=== PATIENT | female | born 1960 | race Caucasian/White ===

== ENCOUNTER 2018-08-02 21:22 | Emergency (ER) | payer MEDICARE, MEDICAID ==
[~2018-08-02] VITALS: Ht 160 cm; Wt 81.0 kg
[2018-08-02 21:35] VITALS: BP 119/49
[2018-08-02 23:18] LABS: BASOPHILS % (AUTO) 0.4 % (0-1); EOSINOPHILS % (AUTO) 0.1 % (0-6); HEMATOCRIT 39.1 % (35.0-45.0); HEMOGLOBIN 13.3 g/dl (12.0-16.0); LYMPHOCYTES # (AUTO) 1.4 X10'3 (1.1-4.8); LYMPHOCYTES % (AUTO) 12.6 % (21-51); MEAN CORPUSCULAR HEMOGLOBIN 31.7 PG (27.0-31.0); MEAN CORPUSCULAR VOLUME 93.1 FL (78-98); MEAN PLATELET VOLUME 7.9 FL (7.4-10.4); MONOCYTES # (AUTO) 1.3 X10'3 (0-0.9); MONOCYTES % (AUTO) 11.4 % (2-12); NEUTROPHILS # (AUTO) 8.5 X10'3 (1.8-7.7); NEUTROPHILS % (AUTO) 75.5 % (42-75); PLATELET COUNT 201 X10'3 (140-440); RED CELL DISTRIBUTION WIDTH 13.2 % (11.5-14.5); WHITE BLOOD COUNT 11.3 X10'3 (4.5-11.0)
[2018-08-02 23:28] LABS: PROTHROMBIN TIME 10.5 SECONDS (9.0-12.0)
[2018-08-02 23:29] LABS: ALANINE AMINOTRANSFERASE 23 U/L (12-78); ALBUMIN 3.7 G/DL (3.4-5.0); ALBUMIN/GLOBULIN RATIO 0.9 (1.1-1.5); ALKALINE PHOSPHATASE 81 IU/L (46-116); ANION GAP 11 (8-16); ASPARTATE AMINO TRANSFERASE 22 U/L (10-37); BILIRUBIN,TOTAL 0.2 MG/DL (0.1-1.0); BLOOD UREA NITROGEN 19 MG/DL (7-18); BUN/CREATININE RATIO 25.7 (6.6-38.0); CALCIUM 9.2 MG/DL (8.5-10.1); CHLORIDE 100 MMOL/L (99-107); CREATININE 0.74 MG/DL (0.40-0.90); GLUCOSE 120 MG/DL (70-104); POTASSIUM 3.8 MMOL/L (3.5-5.1); SODIUM 138 MMOL/L (135-145); TOTAL CARBON DIOXIDE 27.4 MMOL/L (24-32); TOTAL PROTEIN 7.8 G/DL (6.4-8.2); eGFR 81 ML/MIN
[2018-08-03] MEDS ORDERED: famotidine 20mg tablet PO ONE (00:05)
[2018-08-03] MEDS ORDERED: diphenhydrAMINE 25mg capsule PO ONE (00:05)
== END 2018-08-03 00:34 | disposition home or self-care (01) ==
LOC: ER 21:23
DX: K29.00 Acute gastritis without bleeding (principal); K64.8 Other hemorrhoids; Z91.018 Allergy to other foods
CPT/HCPCS: 36415; 74018; 80053; 85025; 85610; 99284; Q0163

== ENCOUNTER 2019-07-01 14:19 | Emergency (ER) | payer MEDICARE, MEDICAID ==
[~2019-07-01] VITALS: Ht 160 cm; Wt 83.0 kg
[2019-07-01 14:36] VITALS: BP 126/76
[2019-07-01] MEDS ORDERED: HYDROcodone/acetaminophen 10/325mg tab PO ONE (14:40)
[2019-07-01] MEDS ORDERED: HYDR-4353 PO (15:16)
--- NOTE | 2019-07-01 15:30 | NUR ---
pt c/o right leg pain, spoke to Dr Gomes, he states that he is aware and that it is her femur, he is not going to xray
== END 2019-07-01 16:30 | disposition home or self-care (01) ==
LOC: ER 14:19
DX: S43.102A Unspecified dislocation of left acromioclavicular joint, initial encounter (principal); Z91.018 Allergy to other foods; W18.49XA Other slipping, tripping and stumbling without falling, initial encounter; Y93.67 Activity, basketball; Y92.89 Other specified places as the place of occurrence of the external cause; Y99.9 Unspecified external cause status
CPT/HCPCS: 73030; 99284

== ENCOUNTER 2020-02-03 11:00 | Emergency (ER) | payer MEDICARE, MEDICAID ==
[~2020-02-03] VITALS: Ht 160 cm; Wt 81.8 kg
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
[2020-02-03 11:48] VITALS: BP 142/77
[2020-02-03] MEDS ORDERED: pantoprazole 40 MG vial IV ONE (12:40)
[2020-02-03] MEDS ORDERED: ondansetron/PF 4mg/2ml inj IV ONE (12:40)
[2020-02-03] MEDS ORDERED: normal saline 1000ML IV soln IVB ONE (12:40)
[2020-02-03 12:49] LABS: CLARITY,URINE CLEAR (Clear); COLOR,URINE YELLOW (Yellow); GLUCOSE, URINE NEGATIVE (Neg); KETONES,URINE NEGATIVE (Neg); LEUKOCYTE ESTERASE ,URINE NEGATIVE (Neg); NITRITES, URINE NEGATIVE (Neg); OCCULT BLOOD,URINE NEGATIVE (Neg); PH,URINE 8.5 (4.8-8.0); PROTEIN,URINE NEGATIVE (Neg)
[2020-02-03 12:51] LABS: BASOPHILS % (AUTO) 0.4 % (0-1); EOSINOPHILS # (AUTO) 0.1 X10'3 (0-0.9); EOSINOPHILS % (AUTO) 1.1 % (0-6); HEMATOCRIT 38.9 % (35.0-45.0); LYMPHOCYTES # (AUTO) 2.6 X10'3 (1.1-4.8); MEAN CORPUSCULAR HEMOGLOBIN 31.7 PG (27.0-31.0); MEAN CORPUSCULAR HGB CONC 33.5 g/dL (33.0-36.5); MEAN CORPUSCULAR VOLUME 94.6 FL (78-98); MEAN PLATELET VOLUME 8.7 FL (7.4-10.4); MONOCYTES # (AUTO) 0.6 X10'3 (0-0.9); NEUTROPHILS # (AUTO) 2.1 X10'3 (1.8-7.7); NEUTROPHILS % (AUTO) 39.5 % (42-75); PLATELET COUNT 197 X10'3 (140-440); RED BLOOD COUNT 4.11 X10'6 (4.20-5.60); RED CELL DISTRIBUTION WIDTH 13.6 % (11.5-14.5); WHITE BLOOD COUNT 5.4 X10'3 (4.5-11.0)
[2020-02-03 12:53] LABS: UA COLLECTION TYPE CLN CATCH MIDSTREAM
[2020-02-03 12:59] LABS: ALANINE AMINOTRANSFERASE 20 U/L (12-78); ALBUMIN 3.7 G/DL (3.4-5.0); ALKALINE PHOSPHATASE 75 IU/L (46-116); ANION GAP 8 (8-16); ASPARTATE AMINO TRANSFERASE 19 U/L (10-37); BILIRUBIN,TOTAL 0.2 MG/DL (0.1-1.0); BLOOD UREA NITROGEN 13 MG/DL (7-18); CALCIUM 9.3 MG/DL (8.5-10.1); CHLORIDE 107 MMOL/L (99-107); CREATININE 0.65 MG/DL (0.40-0.90); GLUCOSE 89 MG/DL (70-104); LIPASE 97 U/L (73-393); POTASSIUM 3.8 MMOL/L (3.5-5.1); SODIUM 144 MMOL/L (135-145); TOTAL CARBON DIOXIDE 29.5 MMOL/L (24-32); TOTAL PROTEIN 7.5 G/DL (6.4-8.2); eGFR > 90 ML/MIN
== END 2020-02-03 15:04 | disposition home or self-care (01) ==
LOC: ER 11:01
DX: R11.10 Vomiting, unspecified (principal); R07.89 Other chest pain; R30.0 Dysuria; K21.9 Gastro-esophageal reflux disease without esophagitis; F20.9 Schizophrenia, unspecified; Z88.8 Allergy status to other drugs, medicaments and biological substances
CPT/HCPCS: 36415; 80053; 81003; 83690; 84484; 85025; 93005; 96361; 96374; 96375; 99284; C9113; J2405; J7030

== ENCOUNTER 2020-03-27 08:48 | Emergency (ER) | payer MEDICARE, MEDICAID ==
[~2020-03-27] VITALS: Ht 160 cm; Wt 81.8 kg
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
[2020-03-27] MEDS ORDERED: LORazepam 1 MG tablet PO ONE (09:35)
[2020-03-27] MEDS ORDERED: normal saline 1000ML IV soln IVB ONE (09:35)
[2020-03-27 10:07] LABS: BASOPHILS # (AUTO) 0.1 X10'3 (0-0.2); BASOPHILS % (AUTO) 0.8 % (0-1); EOSINOPHILS # (AUTO) 0.1 X10'3 (0-0.9); EOSINOPHILS % (AUTO) 1.1 % (0-6); HEMATOCRIT 38.1 % (35.0-45.0); HEMOGLOBIN 12.8 g/dl (12.0-16.0); LYMPHOCYTES # (AUTO) 2.8 X10'3 (1.1-4.8); LYMPHOCYTES % (AUTO) 37.5 % (21-51); MEAN CORPUSCULAR HEMOGLOBIN 31.5 PG (27.0-31.0); MEAN CORPUSCULAR HGB CONC 33.7 g/dL (33.0-36.5); MEAN CORPUSCULAR VOLUME 93.4 FL (78-98); MEAN PLATELET VOLUME 7.8 FL (7.4-10.4); MONOCYTES # (AUTO) 0.8 X10'3 (0-0.9); MONOCYTES % (AUTO) 10.5 % (2-12); NEUTROPHILS # (AUTO) 3.8 X10'3 (1.8-7.7); NEUTROPHILS % (AUTO) 50.1 % (42-75); PLATELET COUNT 215 X10'3 (140-440); RED BLOOD COUNT 4.08 X10'6 (4.20-5.60); RED CELL DISTRIBUTION WIDTH 13.4 % (11.5-14.5); WHITE BLOOD COUNT 7.6 X10'3 (4.5-11.0)
[2020-03-27 10:25] LABS: ALANINE AMINOTRANSFERASE 21 U/L (12-78); ALBUMIN 3.7 G/DL (3.4-5.0); ALBUMIN/GLOBULIN RATIO 0.9 (1.1-1.5); ALKALINE PHOSPHATASE 74 IU/L (46-116); ANION GAP 8 (8-16); ASPARTATE AMINO TRANSFERASE 18 U/L (10-37); BILIRUBIN,TOTAL 0.3 MG/DL (0.1-1.0); BLOOD UREA NITROGEN 16 MG/DL (7-18); BUN/CREATININE RATIO 23.2 (6.6-38.0); CALCIUM 9.1 MG/DL (8.5-10.1); CHLORIDE 111 MMOL/L (99-107); CREATININE 0.69 MG/DL (0.40-0.90); GLUCOSE 91 MG/DL (70-104); POTASSIUM 3.9 MMOL/L (3.5-5.1); SODIUM 147 MMOL/L (135-145); TOTAL CARBON DIOXIDE 28.2 MMOL/L (24-32); TOTAL PROTEIN 7.8 G/DL (6.4-8.2); eGFR 87 ML/MIN
--- NOTE | 2020-03-27 11:06 | NUR ---
PT IS EASILY REDIRECTED ,NO DISTRESS NOTED ,PT OBEYS COMMAND.PT HAS NOT ATTEMPT TO HIT HERSELF SINCE PT IS HERE ,THE CAREGIVER STATED THAT SHE IS WITH HER SINCE 7 AM THIS AM AND HAVE NOT ATTEMPT TO HIT HERSELF .
[2020-03-27 11:43] LABS: URINE AMPHETAMINE SCREEN NEGATIVE (Neg); URINE BARBITUATE SCREEN NEGATIVE (Neg); URINE BENZODIAZEPINES SCREEN NEGATIVE (Neg); URINE CANNABINOID SCREEN NEGATIVE (Neg); URINE COCAINE SCREEN NEGATIVE (Neg); URINE METHADONE SCREEN NEGATIVE (Neg); URINE OPIATE SCREEN NEGATIVE (Neg); URINE PHENCYCLIDINE SCREEN NEGATIVE (Neg)
[2020-03-27 11:45] LABS: CLARITY,URINE CLEAR (Clear); COLOR,URINE STRAW (Yellow); GLUCOSE, URINE NEGATIVE (Neg); KETONES,URINE NEGATIVE (Neg); LEUKOCYTE ESTERASE ,URINE SMALL (Neg); NITRITES, URINE NEGATIVE (Neg); OCCULT BLOOD,URINE NEGATIVE (Neg); PROTEIN,URINE NEGATIVE (Neg); UROBILINOGEN,URINE 0.2 E.U/dL (0.2-1.0)
[2020-03-27 11:50] LABS: UA COLLECTION TYPE CLN CATCH MIDSTREAM
[2020-03-27 11:51] LABS: WBC,URINE 0-4 /HPF (0-4)
[2020-03-27 11:52] LABS: BACTERIA,URINE NONE SEEN /HPF (Neg); RBC,URINE NONE SEEN /HPF (0-2); SQUAMOUS EPITHELIAL CELL,UR NONE SEEN /LPF (FEW)
[2020-03-27 15:08] LABS: VALPROATE 70 UG/ML (50-100)
[2020-03-27] MEDS ORDERED: cephalexin 250mg capsule PO ONE (16:15)
--- NOTE | 2020-03-27 16:50 | NUR ---
PT BROUGHT TO OF RM 20 FROM MAIN ER RM 10
--- NOTE | 2020-03-27 16:51 | NUR ---
REPORT RECEIVED FROM CAREGIVER ON ARRIVAL TO OF. CAREGIVER IS NOW GONE.
[2020-03-27] MEDS ORDERED: MULT-1085 PO (16:57)
[2020-03-27] MEDS ORDERED: DIVA500T9 PO (16:57)
[2020-03-27] MEDS ORDERED: OMEP-50 PO (16:57)
[2020-03-27] MEDS ORDERED: CLON0.5T4 PO (16:57)
[2020-03-27] MEDS ORDERED: MELA5TAB12 PO (16:57)
[2020-03-27] MEDS ORDERED: PHEN51CR24 RC (16:57)
[2020-03-27] MEDS ORDERED: MUPI1OIN5 TOP (16:57)
[2020-03-27] MEDS ORDERED: ATOR20TA66 PO (16:57)
[2020-03-27] MEDS ORDERED: OLAN20TA34 PO (16:57)
[2020-03-27] MEDS ORDERED: PROP1DRO7 OP (16:57)
[2020-03-27] MEDS ORDERED: NAPR-996 PO (16:57)
[2020-03-27] MEDS ORDERED: DESV50TA20 PO (16:57)
[2020-03-27] MEDS ORDERED: FLUT16SP26 NS (16:57)
[2020-03-27] MEDS ORDERED: SENN-263 PO (16:57)
[2020-03-27] MEDS ORDERED: DOCU250C70 PO (16:57)
[2020-03-27] MEDS ORDERED: POLY119P2 PO (16:57)
[2020-03-27] MEDS ORDERED: LEVO100T9 PO (16:57)
[2020-03-27] MEDS ORDERED: OLAN10TA19 PO (16:57)
[2020-03-27] MEDS ORDERED: CLON-473 PO (16:57)
[2020-03-27] MEDS ORDERED: DIPH25CA83 PO (16:57)
[2020-03-27] MEDS ORDERED: PALI234D IM (17:03)
--- NOTE | 2020-03-27 17:37 | NUR ---
PT AMB TO BATHROOM AND BACK TO BED. DC IV FROM RIGHT RA INTACT AND SITE CLEAR. PT NOW SLEEPING.
--- NOTE | 2020-03-27 17:51 | NUR ---
PACKET SENT TO THE TAT OFFICE.
[2020-03-27] MEDS ORDERED: MUPI22OI30 TOP (18:58)
[2020-03-27] MEDS ORDERED: naproxen 500mg tablet PO PRN (19:00)
[2020-03-27] MEDS ORDERED: sennosides 8.6mg tablet PO PRN (19:00)
[2020-03-27] MEDS ORDERED: clonazePAM 0.5mg tablet PO PRN (19:00)
[2020-03-27] MEDS ORDERED: polyethylene glycol 3350 17gm powd pack PO PRN (19:15)
[2020-03-27] MEDS ORDERED: PHENYLEPH/MIN OIL/PETROLAT hemorrhoid oint 57GM tube RC PRN (19:25)
[2020-03-27] MEDS: cephalexin 250mg capsule PO SCH (20:07)
[2020-03-27] MEDS: venlafaxine 25mg tablet PO SCH (20:08)
--- NOTE | 2020-03-27 20:37 | NUR ---
[facility] evaled pt and deemed she did not meet criteria for a 5150 hold. Patient was cooperative with staff during her interview and answered appropriately. Pt has had no behaviors during her time here. After her interview pt sat up to the side of the bed and ate dinner then laid back down after. Pt took her medications without issue.
--- NOTE | 2020-03-27 20:38 | NUR ---
Was informed by [facility] worker that patient's facility is telling him that they refuse to come get the patient because they feel something more is wrong with her and that she is unsafe to return to the facility. Facility was informed that pt was given fluids for suspected dehydration and started on antibiotics because the patient has a UTI but facility continues to insist that something else is wrong and that she needs to be kept here. Another call was being made to the facility by [facility] Addendum: 03/27/20 at 2104 by JAKE WAS INFORMED BY [facility] THAT FACILITY STILL STATES THEY CANNOT PICK PT UP TONIGHT AND WANT HER HERE UNTIL THE MORNING. DEVICE REPAIR TECHNICIAN INVOLVED AND STATED THAT PT WILL BE ALLOWED TO STAY THE NIGHT IF FACILITY GIVES US AN EXACT TIME WHEN THEY WILL BE HERE TO PICK PT UP. AWAITING RETURN CALL FROM FACILITY
[2020-03-27] MEDS ORDERED: olanzapine 10mg tablet PO SCH (21:00)
[2020-03-27] MEDS ORDERED: divalproex sod 250mg ER (24-hour) tablet PO SCH (21:00)
[2020-03-27] MEDS ORDERED: Melatonin 3mg tablet PO SCH (21:00)
[2020-03-27] MEDS ORDERED: docusate sod 250mg capsule PO SCH (21:00)
[2020-03-27] MEDS ORDERED: diphenhydrAMINE 25mg capsule PO SCH (21:00)
--- NOTE | 2020-03-27 22:00 | NUR ---
Upon returning from break was informed by relief RN that [facility] worker had heard from the patient's facility and that they stated they still don't want to take the patient back. The facility is stating they want a new evaluation of the patient done in the AM by a different [facility] worker because they feel this first eval is inacurate. The facility stated that they will only pick the pt up at 1000 if a new eval has been done. architect internship is aware of situation
[2020-03-27] MEDS: polyvinyl alcohol ophthalmic drops 15ml bottle EACHEYE SCH (22:59)
[2020-03-27] MEDS: mupirocin 2% ointment 22GM TP SCH ×2 (23:02→23:10)
--- NOTE | 2020-03-27 23:31 | NUR ---
Pt lying in bed appears to be resting comfortably. No apparent s/s of distress noted.
--- NOTE | 2020-03-28 01:19 | NUR ---
Patient is currently lying in bed and appears to be resting comfortably. No s/s of distress noted. Patient continues to be pleasant with staff and has not had any behaviors while here tonight. Pt has taken her medication without issue and has not shown any signs of wanting to hurt herself.
[2020-03-28] MEDS: cephalexin 250mg capsule PO SCH ×2 (02:20→08:40)
--- NOTE | 2020-03-28 02:24 | NUR ---
Pt continues to be cooperative with staff and not demonstrate any behavior of self harm. Pt was woken up to take her 0200 dose of Keflex and sat up and took medication without issue. Pt then stated she was hungry and requested some crackers - pt given saltine crackers which she is currently snacking on.
--- NOTE | 2020-03-28 05:13 | NUR ---
Pt remains lying in her bed appearing to be resting comfortably. Pt has had no behaviors this shift. Pt has cooperated fully with staff and did not attempt to harm herself in any way.
[2020-03-28 05:38] VITALS: BP 132/79
--- NOTE | 2020-03-28 06:47 | NUR ---
pt sleeping in bed quietly ,no distress noted ,rr within normal limits ,will cont to monitor.
[2020-03-28] MEDS ORDERED: levoTHYROXINE 100mcg tablet PO SCH ×2 (07:00→08:00)
[2020-03-28] MEDS ORDERED: pantoprazole 40mg Tablet.DR PO SCH (07:30)
--- NOTE | 2020-03-28 07:54 | NUR ---
pt medicated with early scheduled am meds before breakfast ,no distress noted ,pt cooperative and pleasant ,will cont to monitor ,waiting for mental health eval to come and talk to the adminstrator of [facility] {reshma giron}[phone].
[2020-03-28] MEDS ORDERED: atorvastatin 20mg tablet PO SCH (08:00)
[2020-03-28] MEDS ORDERED: olanzapine 10mg tablet PO SCH (08:00)
[2020-03-28] MEDS ORDERED: fluticasone nasal spray 16GM bottle NS SCH (08:00)
[2020-03-28] MEDS ORDERED: cloNIDine 0.1 mg tablet PO SCH (08:00)
[2020-03-28] MEDS ORDERED: multivitamins, therapeutics tablet PO SCH (08:00)
--- NOTE | 2020-03-28 08:06 | NUR ---
pt sitting up on the side of the bed eating her food with minimal assistance to open the food packing.
[2020-03-28] MEDS: polyvinyl alcohol ophthalmic drops 15ml bottle EACHEYE SCH (08:43)
[2020-03-28] MEDS: venlafaxine 25mg tablet PO SCH (08:43)
[2020-03-28] MEDS: mupirocin 2% ointment 22GM TP SCH (08:47)
--- NOTE | 2020-03-28 08:54 | NUR ---
pt up to use restroom at this time.will cont to monitor.
--- NOTE | 2020-03-28 08:56 | NUR ---
[facility] nikko altamirano at bedside assessing the pt at this time.
--- NOTE | 2020-03-28 09:04 | NUR ---
called the pharmacy for the pt annie as per jack from pharmacy as per them they will bring the med to overflow.
--- NOTE | 2020-03-28 09:06 | NUR ---
paged social media senior associate for pt ,anca social media senior associate stated that she will call mental health clinician angelo they can stay on same page.as per anca tam was try to reach to zuleima el ,informed that pt has been evaluated by zuleima el ,as per anca i will call him again.
--- NOTE | 2020-03-28 09:30 | NUR ---
CHARGE NURSE PASCUAL HAS INFORMED ME THAT PT IS GOING TO BE DIRECT ADMIT TO [facility] BUT NOT FROM ER [facility] PT IS GOOD TO BE D/C WITH [employer] AND THE RESIDENTIAL WILL GO THROUGH THE PROCESS BY THEMSELF.INFORMED PASCUAL RN THAT SHE NEEDS KEFLEX PRX AT TIME OF D/C PER NIGHT NURSE .
--- NOTE | 2020-03-28 09:47 | NUR ---
SP[RAMILA TO DR KENDALL REGARDING PT KEFLEX PRX FOR UTI PER DR KENDALL PT DOES NOT NEED TO BE ON ABX AND NO NEED FOR PRX.D/C PAPERWORK WERE PRINTED BY THE SCRIBE.
== END 2020-03-28 09:51 | disposition home or self-care (01) ==
LOC: ER 08:48
DX: N39.0 Urinary tract infection, site not specified (principal); K21.9 Gastro-esophageal reflux disease without esophagitis; R51.9 Headache, unspecified; F20.9 Schizophrenia, unspecified; Z88.8 Allergy status to other drugs, medicaments and biological substances; Z79.899 Other long term (current) drug therapy
CPT/HCPCS: 36415; 70450; 71045; 80053; 80164; 80305; 81001; 84443; 85025; 87088; 96360; 99285; J7030; Q0163

== ENCOUNTER 2020-06-11 12:55 | Emergency (ER) | payer MEDICARE, MEDICAID ==
[~2020-06-11] VITALS: Ht 160 cm; Wt 88.1 kg
[~2020-06-11 12:55] MED LIST: ATOR20TA66 PO; CLON-473 PO; CLON0.5T4 PO; DESV50TA20 PO; DIPH25CA83 PO; DIVA500T9 PO; DOCU250C70 PO; FLUT16SP26 NS; LEVO100T9 PO; MELA5TAB12 PO; MULT-1085 PO; MUPI22OI30 TOP; NAPR-996 PO; OLAN10TA19 PO; OLAN20TA34 PO; OMEP-50 PO; PALI234D IM; PHEN51CR24 RC; POLY119P2 PO; PROP1DRO7 OP; SENN-263 PO
[2020-06-11 13:27] VITALS: BP 128/75
[2020-06-11] MEDS ORDERED: LIDOcaine 5% patch TP ONE (15:00)
[2020-06-11] MEDS ORDERED: ibuprofen tablet 400 MG TABLET PO ONE (15:00)
[2020-06-11] MEDS ORDERED: ibuprofen 200mg tablet PO ONE (15:00)
[2020-06-11] MEDS ORDERED: LIDO700A32 TOP (15:14)
== END 2020-06-11 15:37 | disposition home or self-care (01) ==
LOC: ER 12:56
DX: R07.81 Pleurodynia (principal); K21.9 Gastro-esophageal reflux disease without esophagitis; F20.9 Schizophrenia, unspecified; Z87.440 Personal history of urinary (tract) infections; Z88.8 Allergy status to other drugs, medicaments and biological substances; Z79.899 Other long term (current) drug therapy
CPT/HCPCS: 71046; 99284

== ENCOUNTER 2021-02-02 23:33 | Emergency (ER) | payer MEDICARE, MEDICAID ==
[~2021-02-02] VITALS: Ht 160 cm; Wt 83.2 kg
[~2021-02-02 23:33] MED LIST changes: +LIDO700A32 TOP; -OLAN10TA19 PO; +OLAN10TA73 PO
[2021-02-02] MEDS ORDERED: aspirin 81mg tab.chew PO ONE (23:40)
[2021-02-02] MEDS ORDERED: mag hydrox/Alum hydrox/simeth 30ml oral suspension PO ONE (23:45)
[2021-02-02] MEDS ORDERED: sucralfate 1gm/10ml UD suspension PO SCH (23:45)
[2021-02-02] MEDS ORDERED: LIDOcaine Viscous 15ml cup MM PRN (23:45)
[2021-02-02] MEDS ORDERED: sucralfate 1gm/10ml UD suspension PO ONE (23:45)
[2021-02-03 00:04] LABS: BASOPHILS % (AUTO) 0.3 % (0-1); EOSINOPHILS # (AUTO) 0.1 X10'3 (0-0.9); EOSINOPHILS % (AUTO) 1.8 % (0-6); HEMATOCRIT 36.6 % (35.0-45.0); HEMOGLOBIN 12.6 g/dl (12.0-16.0); LYMPHOCYTES # (AUTO) 3.3 X10'3 (1.1-4.8); LYMPHOCYTES % (AUTO) 45.1 % (21-51); MEAN CORPUSCULAR HEMOGLOBIN 31.9 PG (27.0-31.0); MEAN CORPUSCULAR HGB CONC 34.3 g/dL (33.0-36.5); MEAN CORPUSCULAR VOLUME 93.1 FL (78-98); MEAN PLATELET VOLUME 7.8 FL (7.4-10.4); MONOCYTES % (AUTO) 13.3 % (2-12); NEUTROPHILS # (AUTO) 2.9 X10'3 (1.8-7.7); NEUTROPHILS % (AUTO) 39.5 % (42-75); PLATELET COUNT 176 X10'3 (140-440); RED BLOOD COUNT 3.93 X10'6 (4.20-5.60); RED CELL DISTRIBUTION WIDTH 14.3 % (11.5-14.5); WHITE BLOOD COUNT 7.4 X10'3 (4.5-11.0)
[2021-02-03 00:13] LABS: PARTIAL THROMBOPLASTIN TIME 25 SECONDS (22-32)
[2021-02-03 00:16] LABS: ALANINE AMINOTRANSFERASE 26 U/L (12-78); ALBUMIN 3.4 G/DL (3.4-5.0); ALBUMIN/GLOBULIN RATIO 0.9 (1.1-1.5); ALKALINE PHOSPHATASE 94 IU/L (46-116); ANION GAP 8 (8-16); ASPARTATE AMINO TRANSFERASE 26 U/L (10-37); BILIRUBIN,TOTAL 0.3 MG/DL (0.1-1.0); BLOOD UREA NITROGEN 14 MG/DL (7-18); CALCIUM 8.7 MG/DL (8.5-10.1); CHLORIDE 108 MMOL/L (99-107); GLUCOSE 101 MG/DL (70-104); POTASSIUM 3.8 MMOL/L (3.5-5.1); SODIUM 145 MMOL/L (135-145); TOTAL CARBON DIOXIDE 28.9 MMOL/L (24-32); TOTAL PROTEIN 7.2 G/DL (6.4-8.2); eGFR 86 ML/MIN
[2021-02-03 00:26] LABS: MAGNESIUM 2.1 MG/DL (1.5-2.4); TROPONIN I < 0.04 NG/ML (0.0-0.05)
[2021-02-03 00:31] VITALS: BP 141/75
== END 2021-02-03 03:53 | disposition home or self-care (01) ==
LOC: ER 23:34
DX: R10.13 Epigastric pain (principal); R07.89 Other chest pain; R06.02 Shortness of breath; K21.9 Gastro-esophageal reflux disease without esophagitis; E07.9 Disorder of thyroid, unspecified; Z87.440 Personal history of urinary (tract) infections; Z88.8 Allergy status to other drugs, medicaments and biological substances; Z91.018 Allergy to other foods; Z79.899 Other long term (current) drug therapy
CPT/HCPCS: 36415; 71045; 80053; 83735; 83880; 84484; 85025; 85610; 85730; 93005; 99285

== ENCOUNTER 2021-08-19 14:57 | Inpatient (IN) | payer MEDICARE, MEDICAID ==
[~2021-08-19] VITALS: Ht 157.5 cm; Wt 90.9 kg
[~2021-08-19 14:57] MED LIST changes: -OMEP-50 PO; +OMEP20CA16 PO
[2021-08-19 15:40] LABS: BASOPHILS % (AUTO) 0.6 % (0-1); EOSINOPHILS # (AUTO) 0.1 X10'3 (0-0.9); EOSINOPHILS % (AUTO) 1.1 % (0-6); HEMATOCRIT 39.2 % (35.0-45.0); HEMOGLOBIN 13.1 g/dl (12.0-16.0); LYMPHOCYTES # (AUTO) 2.8 X10'3 (1.1-4.8); LYMPHOCYTES % (AUTO) 53.4 % (21-51); MEAN CORPUSCULAR HEMOGLOBIN 31.2 PG (27.0-31.0); MEAN CORPUSCULAR HGB CONC 33.5 g/dL (33.0-36.5); MEAN CORPUSCULAR VOLUME 93.1 FL (78-98); MEAN PLATELET VOLUME 8.9 FL (7.4-10.4); MONOCYTES # (AUTO) 0.6 X10'3 (0-0.9); MONOCYTES % (AUTO) 11.9 % (2-12); NEUTROPHILS # (AUTO) 1.8 X10'3 (1.8-7.7); PLATELET COUNT 154 X10'3 (140-440); RED BLOOD COUNT 4.21 X10'6 (4.20-5.60); RED CELL DISTRIBUTION WIDTH 14.9 % (11.5-14.5); WHITE BLOOD COUNT 5.3 X10'3 (4.5-11.0)
[2021-08-19 15:53] LABS: ALANINE AMINOTRANSFERASE 43 U/L (12-78); ALBUMIN 3.5 G/DL (3.4-5.0); ALBUMIN/GLOBULIN RATIO 0.9 (1.1-1.5); ALKALINE PHOSPHATASE 67 IU/L (46-116); ANION GAP 12 (8-16); ASPARTATE AMINO TRANSFERASE 57 U/L (10-37); BILIRUBIN,TOTAL 0.4 MG/DL (0.1-1.0); BLOOD UREA NITROGEN 13 MG/DL (7-18); BUN/CREATININE RATIO 15.9 (6.6-38.0); CALCIUM 9.2 MG/DL (8.5-10.1); CHLORIDE 104 MMOL/L (99-107); CREATININE 0.82 MG/DL (0.40-0.90); GLUCOSE 104 MG/DL (70-104); POTASSIUM 3.5 MMOL/L (3.5-5.1); SODIUM 143 MMOL/L (135-145); TOTAL CARBON DIOXIDE 26.8 MMOL/L (24-32); TOTAL PROTEIN 7.6 G/DL (6.4-8.2); eGFR 71 ML/MIN
[2021-08-19 16:06] LABS: ACETAMINOPHEN < 2.0 UG/ML (10-30); ETHANOL < 0.010 GM/DL (0.0-0.010)
[2021-08-19 16:13] LABS: PLATELET ESTIMATE NORMAL; TOTAL CELLS COUNTED 100
[2021-08-19 17:09] LABS: URINE AMPHETAMINE SCREEN NEGATIVE (Neg); URINE BARBITUATE SCREEN NEGATIVE (Neg); URINE BENZODIAZEPINES SCREEN NEGATIVE (Neg); URINE CANNABINOID SCREEN NEGATIVE (Neg); URINE COCAINE SCREEN NEGATIVE (Neg); URINE METHADONE SCREEN NEGATIVE (Neg); URINE OPIATE SCREEN NEGATIVE (Neg); URINE PHENCYCLIDINE SCREEN NEGATIVE (Neg)
[2021-08-19 18:16] LABS: CLARITY,URINE CLEAR (Clear); COLOR,URINE YELLOW (Yellow); GLUCOSE, URINE NEGATIVE (Neg); KETONES,URINE TRACE mg/dl (Neg); LEUKOCYTE ESTERASE ,URINE NEGATIVE (Neg); NITRITES, URINE NEGATIVE (Neg); OCCULT BLOOD,URINE NEGATIVE (Neg); PROTEIN,URINE TRACE mg/dl (Neg)
[2021-08-19 18:22] LABS: UA COLLECTION TYPE NON-SPECIFIED
[2021-08-19 18:26] LABS: MUCUS STRANDS MODERATE /LPF (Neg)
[2021-08-19 18:27] LABS: BACTERIA,URINE NONE SEEN /HPF (Neg); RBC,URINE NONE SEEN /HPF (0-2); SQUAMOUS EPITHELIAL CELL,UR FEW /LPF (FEW); WBC,URINE 0-4 /HPF (0-4)
--- NOTE | 2021-08-19 19:45 | NUR ---
pt resting comfortably, vss, [facility] Provider, Chichi Nolasco at bs
--- NOTE | 2021-08-19 21:47 | NUR ---
Pt c/o discomfort, repositioned in bed
--- NOTE | 2021-08-19 21:52 | NUR ---
Dr Louie md at bs
[2021-08-20] MEDS ORDERED: ondansetron 4mg rapidly disintigrating tab PO PRN (01:00)
[2021-08-20] MEDS ORDERED: diphenhydrAMINE 25mg capsule PO PRN (01:00)
[2021-08-20] MEDS ORDERED: bisacodyl 10mg suppository rectal RC PRN (01:00)
[2021-08-20] MEDS ORDERED: ondansetron/PF 4mg/2ml inj IV PRN (01:00)
[2021-08-20] MEDS ORDERED: diphenhydrAMINE 50 mg/ml inj IV PRN (01:00)
[2021-08-20] MEDS ORDERED: acetaminophen 650mg rectal suppository RC PRN (01:00)
[2021-08-20] MEDS ORDERED: morphine 2 MG/ML inj. syringe IV PRN (01:00)
[2021-08-20] MEDS ORDERED: magnesium hydroxide 30ml (MOM) UD suspension PO PRN (01:00)
[2021-08-20] MEDS ORDERED: acetaminophen 325mg tablet PO PRN (01:00)
[2021-08-20] MEDS ORDERED: mag hydrox/Alum hydrox/simeth 30ml oral suspension PO PRN (01:00)
[2021-08-20] MEDS ORDERED: LIDOcaine 2% 10ml TOPICAL JELLY (Urojet) TP ONE (01:00)
[2021-08-20] MEDS ORDERED: ringers solution, lacted 1,000 ML IV ONE (01:05)
[2021-08-20 02:06] LABS: HEMOGLOBIN A1C 5.5 % (4.5-6.2)
[2021-08-20 02:08] LABS: APTT 27 SECONDS (22-32)
[2021-08-20] MEDS: normal saline 1000ml 1,000 ML IV SCH ×3 (02:15→21:00)
[2021-08-20 02:31] LABS: MAGNESIUM 2.2 MG/DL (1.5-2.4); PHOSPHORUS 3.5 MG/DL (2.3-4.5)
[2021-08-20] MEDS ORDERED: TRAZ-251 PO (09:34)
[2021-08-20] MEDS ORDERED: OLAN5TAB5 PO (09:34)
[2021-08-20] MEDS ORDERED: SUCR1TAB PO (09:34)
[2021-08-20] MEDS ORDERED: LORA-269 PO (09:34)
[2021-08-20] MEDS ORDERED: CLON0.2T PO (09:34)
[2021-08-20] MEDS ORDERED: LEVO25TA2 PO (09:34)
[2021-08-20] MEDS ORDERED: levoTHYROXINE 25mcg tablet PO SCH (10:55)
[2021-08-20] MEDS ORDERED: docusate sod 250mg capsule PO SCH (10:55)
[2021-08-20] MEDS ORDERED: phenylephrine/cocoa butter (Preparation H) suppository RC PRN (10:55)
[2021-08-20] MEDS: polyvinyl alcohol ophthalmic drops 15ml bottle EACHEYE SCH ×2 (13:00→21:33)
[2021-08-20] MEDS ORDERED: DOCU100C40 PO (13:23)
[2021-08-20] MEDS: rifaximin 550mg tablet PO SCH ×2 (13:39→21:30)
[2021-08-20] MEDS: lactulose 20gm/30ml cup PO SCH ×2 (13:39→20:28)
[2021-08-20] MEDS: atorvastatin 20mg tablet PO SCH (13:39)
[2021-08-20] MEDS: heparin, porcine 5000 units/ml vial SQ SCH ×2 (13:40→20:28)
[2021-08-20] MEDS: sucralfate 1 gm tablet PO SCH ×3 (13:40→20:29)
[2021-08-20] MEDS: docusate sod 100mg capsule PO SCH ×2 (13:40→20:28)
[2021-08-20 15:00] VITALS: BP 145/86
[2021-08-20 18:00] VITALS: BP 152/74
[2021-08-20 19:22] VITALS: BP 145/86
[2021-08-20] MEDS ORDERED: MESSAGE TO NURSING PO ONE (20:00)
[2021-08-20] MEDS: olanzapine 10mg tablet PO SCH (20:29)
[2021-08-20] MEDS ORDERED: OLANZapine 5mg rapidly disint. tablet PO SCH (21:00)
[2021-08-20] MEDS: divalproex sod 250mg ER (24-hour) tablet PO SCH (21:32)
[2021-08-20] MEDS ORDERED: OLANZAPINE 5 MG TABLET PO SCH (21:45)
[2021-08-20] MEDS ORDERED: OLANZAPINE 5 MG TABLET PO ONE (21:50)
[2021-08-20 22:00] VITALS: BP 155/71
[2021-08-21] MEDS: temazepam 15mg capsule PO PRN ×2 (00:20→20:06)
[2021-08-21] MEDS: acetaminophen 325mg tablet PO PRN ×2 (00:36→20:25)
[2021-08-21 02:00] VITALS: BP 139/80
[2021-08-21 06:00] VITALS: BP 139/79
[2021-08-21 07:13] LABS: BASOPHILS % (AUTO) 0.5 % (0-1); EOSINOPHILS % (AUTO) 0.7 % (0-6); HEMATOCRIT 36.6 % (35.0-45.0); HEMOGLOBIN 12.4 g/dl (12.0-16.0); LYMPHOCYTES # (AUTO) 3.1 X10'3 (1.1-4.8); LYMPHOCYTES % (AUTO) 51.3 % (21-51); MEAN CORPUSCULAR HEMOGLOBIN 31.9 PG (27.0-31.0); MEAN CORPUSCULAR VOLUME 93.7 FL (78-98); MEAN PLATELET VOLUME 9.1 FL (7.4-10.4); MONOCYTES # (AUTO) 0.6 X10'3 (0-0.9); MONOCYTES % (AUTO) 10.7 % (2-12); NEUTROPHILS # (AUTO) 2.2 X10'3 (1.8-7.7); NEUTROPHILS % (AUTO) 36.8 % (42-75); PLATELET COUNT 130 X10'3 (140-440); RED CELL DISTRIBUTION WIDTH 14.5 % (11.5-14.5); WHITE BLOOD COUNT 5.9 X10'3 (4.5-11.0)
[2021-08-21 07:26] LABS: ALBUMIN 3.1 G/DL (3.4-5.0); ANION GAP 11 (8-16); BLOOD UREA NITROGEN 6 MG/DL (7-18); BUN/CREATININE RATIO 10.5 (6.6-38.0); CALCIUM 8.8 MG/DL (8.5-10.1); CHLORIDE 110 MMOL/L (99-107); CHOLESTEROL 124 MG/DL (0-200); CREATININE 0.57 MG/DL (0.40-0.90); GLUCOSE 84 MG/DL (70-104); HDL CHOLESTEROL 25 MG/DL (35-60); LDL CHOLESTEROL 73 MG/DL (50-100); POTASSIUM 3.3 MMOL/L (3.5-5.1); SODIUM 150 MMOL/L (135-145); TOTAL CARBON DIOXIDE 29.1 MMOL/L (24-32); TRIGLYCERIDES 107 MG/DL (20-135); eGFR > 90 ML/MIN
[2021-08-21] MEDS: sucralfate 1 gm tablet PO SCH ×4 (08:04→20:05)
[2021-08-21] MEDS: levoTHYROXINE 25mcg tablet PO SCH (08:04)
[2021-08-21] MEDS: atorvastatin 20mg tablet PO SCH (08:05)
[2021-08-21] MEDS: cloNIDine 0.1 mg tablet PO SCH (08:05)
[2021-08-21] MEDS: docusate sod 100mg capsule PO SCH (08:05)
[2021-08-21] MEDS: multivitamins, therapeutics tablet PO SCH (08:08)
[2021-08-21] MEDS: rifaximin 550mg tablet PO SCH ×2 (08:08→20:05)
[2021-08-21] MEDS: heparin, porcine 5000 units/ml vial SQ SCH ×2 (08:09→20:06)
[2021-08-21] MEDS: pantoprazole 40mg Tablet.DR PO SCH (08:10)
[2021-08-21] MEDS: lactulose 20gm/30ml cup PO SCH ×2 (08:13→20:06)
[2021-08-21] MEDS: normal saline 1000ml 1,000 ML IV SCH (08:13)
[2021-08-21] MEDS: polyvinyl alcohol ophthalmic drops 15ml bottle EACHEYE SCH ×2 (08:14→20:07)
[2021-08-21] MEDS: potassium cl 20mEq in 1/2 NS 1,000 ML IV SCH ×2 (10:27→21:06)
[2021-08-21 11:00] VITALS: BP 153/80
[2021-08-21 15:00] VITALS: BP 132/74
[2021-08-21 18:00] VITALS: BP 132/72
[2021-08-21] MEDS ORDERED: magnesium Cl slow-release 64mg tablet PO PRN ×2 (19:10→19:15)
[2021-08-21] MEDS ORDERED: magnesium 2GM in 50ml NS 50 ML IV PRN ×2 (19:10→19:15)
[2021-08-21] MEDS ORDERED: magnesium 4gm in 100ml NS 100 ML IV PRN ×2 (19:10→19:15)
[2021-08-21] MEDS ORDERED: potassium Cl 20 mEq SR tablet PO PRN ×3 (19:10→19:15)
[2021-08-21] MEDS ORDERED: potassium CL 10mEq/100ml bag 100 ML IV PRN ×2 (19:10→19:15)
[2021-08-21] MEDS ORDERED: K and/or MAG REPLACEMENT MC SCH (20:00)
[2021-08-21] MEDS: K and/or MAG REPLACEMENT MC SCH (20:00)
[2021-08-21] MEDS: divalproex sod 250mg ER (24-hour) tablet PO SCH (20:05)
[2021-08-21] MEDS: potassium Cl 20 mEq SR tablet PO PRN (20:06)
[2021-08-21] MEDS: olanzapine 10mg tablet PO SCH (20:12)
[2021-08-21 22:00] VITALS: BP 133/74
[2021-08-22] MEDS: potassium Cl 20 mEq SR tablet PO PRN (00:36)
[2021-08-22 02:00] VITALS: BP 142/80
[2021-08-22] MEDS: acetaminophen 325mg tablet PO PRN (02:45)
[2021-08-22] MEDS: potassium cl 20mEq in 1/2 NS 1,000 ML IV SCH ×2 (06:53→07:50)
[2021-08-22 07:18] VITALS: BP 124/65
[2021-08-22 07:20] LABS: ALBUMIN 3.4 G/DL (3.4-5.0); ANION GAP 7 (8-16); BLOOD UREA NITROGEN 6 MG/DL (7-18); BUN/CREATININE RATIO 11.5 (6.6-38.0); CALCIUM 9.2 MG/DL (8.5-10.1); CHLORIDE 110 MMOL/L (99-107); CREATININE 0.52 MG/DL (0.40-0.90); GLUCOSE 94 MG/DL (70-104); SODIUM 148 MMOL/L (135-145); TOTAL CARBON DIOXIDE 31.3 MMOL/L (24-32); eGFR > 90 ML/MIN
[2021-08-22 07:28] LABS: BASOPHILS % (AUTO) 0.4 % (0-1); EOSINOPHILS # (AUTO) 0.1 X10'3 (0-0.9); EOSINOPHILS % (AUTO) 1.6 % (0-6); HEMATOCRIT 40.4 % (35.0-45.0); HEMOGLOBIN 13.4 g/dl (12.0-16.0); LYMPHOCYTES # (AUTO) 3.6 X10'3 (1.1-4.8); LYMPHOCYTES % (AUTO) 55.7 % (21-51); MEAN PLATELET VOLUME 8.8 FL (7.4-10.4); MONOCYTES # (AUTO) 0.7 X10'3 (0-0.9); MONOCYTES % (AUTO) 10.4 % (2-12); NEUTROPHILS % (AUTO) 31.9 % (42-75); PLATELET COUNT 121 X10'3 (140-440); RED CELL DISTRIBUTION WIDTH 14.7 % (11.5-14.5); WHITE BLOOD COUNT 6.4 X10'3 (4.5-11.0)
[2021-08-22] MEDS: levoTHYROXINE 25mcg tablet PO SCH (07:48)
[2021-08-22] MEDS: lactulose 20gm/30ml cup PO SCH (07:48)
[2021-08-22] MEDS: rifaximin 550mg tablet PO SCH (07:48)
[2021-08-22] MEDS: sucralfate 1 gm tablet PO SCH (07:49)
[2021-08-22] MEDS: multivitamins, therapeutics tablet PO SCH (07:49)
[2021-08-22] MEDS: cloNIDine 0.1 mg tablet PO SCH (07:49)
[2021-08-22] MEDS: atorvastatin 20mg tablet PO SCH (07:49)
[2021-08-22] MEDS: pantoprazole 40mg Tablet.DR PO SCH (07:49)
[2021-08-22] MEDS: heparin, porcine 5000 units/ml vial SQ SCH (07:50)
[2021-08-22] MEDS: polyvinyl alcohol ophthalmic drops 15ml bottle EACHEYE SCH (07:59)
[2021-08-22] MEDS: K and/or MAG REPLACEMENT MC SCH (08:00)
[2021-08-22 09:07] LABS: TOTAL CELLS COUNTED 100
[2021-08-22 09:08] LABS: PLATELET ESTIMATE DECREASED
[2021-08-22] MEDS ORDERED: LORA-269 PO (09:55)
[2021-08-22] MEDS ORDERED: TRAZ-251 PO (09:55)
[2021-08-22] MEDS ORDERED: RIFA550T PO (09:55)
[2021-08-22] MEDS ORDERED: SUCR1TAB34 PO (09:55)
[2021-08-22] MEDS ORDERED: LEVO125T8 PO (11:52)
== END 2021-08-22 12:14 | disposition home or self-care (01) | DRG 917 ==
LOC: ER 14:58 → UNDOADMIN 08-20 01:01 → ED HOLD 08-20 01:01 → PCU 3S 08-20 14:15
PROVIDERS: ADMIT Family Medicine; ATTEND Internal Medicine
DX: T43.211A Poisoning by selective serotonin and norepinephrine reuptake inhibitors, accidental (unintentional), initial encounter (principal); G93.41 Metabolic encephalopathy; G92.8 Other toxic encephalopathy; E72.20 Disorder of urea cycle metabolism, unspecified; E87.0 Hyperosmolality and hypernatremia; F20.9 Schizophrenia, unspecified; E86.1 Hypovolemia; I10 Essential (primary) hypertension; E78.5 Hyperlipidemia, unspecified; E03.9 Hypothyroidism, unspecified; E87.6 Hypokalemia; K21.9 Gastro-esophageal reflux disease without esophagitis; K72.90 Hepatic failure, unspecified without coma; R13.10 Dysphagia, unspecified; R63.0 Anorexia; R94.6 Abnormal results of thyroid function studies; Z91.018 Allergy to other foods; Z87.440 Personal history of urinary (tract) infections; Z68.36 Body mass index [BMI] 36.0-36.9, adult; Z88.8 Allergy status to other drugs, medicaments and biological substances; Z79.899 Other long term (current) drug therapy; Y92.098 Other place in other non-institutional residence as the place of occurrence of the external cause
CPT/HCPCS: 36415; 70450; 71045; 80048; 80053; 80061; 80164; 80305; 80320; 80329; 81001; 82140; 83036; 83605; 83735; 83880; 84100; 84145; 84439; 84443; 84480; 84484; 85007; 85025; 85610; 85730; 87040; 87081; 92508; 92616; 93005; 97161; 97530; 99285; G0378; J1644; J3480; J7030; J7120; Q0163

== ENCOUNTER 2021-10-01 11:05 | Emergency (ER) | payer MEDICARE, MEDICAID ==
[~2021-10-01] VITALS: Ht 160 cm; Wt 85.9 kg
[~2021-10-01 11:05] MED LIST changes: -CLON-473 PO; +CLON0.2T PO; -CLON0.5T4 PO; -DESV50TA20 PO; -DIPH25CA83 PO; +DOCU100C40 PO; -DOCU250C70 PO; -LEVO100T9 PO; +LEVO125T8 PO; -LIDO700A32 TOP; +LORA-269 PO; -MELA5TAB12 PO; -MUPI22OI30 TOP; -NAPR-996 PO; -OLAN10TA73 PO; -PALI234D IM; -POLY119P2 PO; +RIFA550T PO; -SENN-263 PO; +SUCR1TAB34 PO; +TRAZ-251 PO
[2021-10-01 11:14] VITALS: BP 137/70
[2021-10-01 12:31] LABS: BASOPHILS % (AUTO) 0.3 % (0-1); EOSINOPHILS % (AUTO) 0.2 % (0-6); HEMATOCRIT 39.6 % (35.0-45.0); HEMOGLOBIN 13.5 g/dl (12.0-16.0); LYMPHOCYTES # (AUTO) 2.1 X10'3 (1.1-4.8); LYMPHOCYTES % (AUTO) 43.7 % (21-51); MEAN CORPUSCULAR HEMOGLOBIN 31.7 PG (27.0-31.0); MEAN CORPUSCULAR HGB CONC 34.1 g/dL (33.0-36.5); MEAN CORPUSCULAR VOLUME 93.2 FL (78-98); MEAN PLATELET VOLUME 8.1 FL (7.4-10.4); MONOCYTES # (AUTO) 0.6 X10'3 (0-0.9); MONOCYTES % (AUTO) 12.2 % (2-12); NEUTROPHILS # (AUTO) 2.1 X10'3 (1.8-7.7); NEUTROPHILS % (AUTO) 43.6 % (42-75); PLATELET COUNT 133 X10'3 (140-440); RED BLOOD COUNT 4.25 X10'6 (4.20-5.60); RED CELL DISTRIBUTION WIDTH 14.7 % (11.5-14.5); WHITE BLOOD COUNT 4.9 X10'3 (4.5-11.0)
[2021-10-01 12:44] LABS: CLARITY,URINE CLEAR (Clear); COLOR,URINE YELLOW (Yellow); GLUCOSE, URINE NEGATIVE (Neg); KETONES,URINE NEGATIVE (Neg); LEUKOCYTE ESTERASE ,URINE SMALL (Neg); NITRITES, URINE NEGATIVE (Neg); OCCULT BLOOD,URINE NEGATIVE (Neg); PROTEIN,URINE NEGATIVE (Neg); UROBILINOGEN,URINE 0.2 E.U/dL (0.2-1.0)
[2021-10-01 12:47] LABS: UA COLLECTION TYPE CLN CATCH MIDSTREAM
[2021-10-01 12:49] LABS: ALANINE AMINOTRANSFERASE 39 U/L (12-78); ALBUMIN 3.7 G/DL (3.4-5.0); ALKALINE PHOSPHATASE 66 IU/L (46-116); ANION GAP 9 (8-16); ASPARTATE AMINO TRANSFERASE 47 U/L (10-37); BILIRUBIN,TOTAL 0.4 MG/DL (0.1-1.0); BLOOD UREA NITROGEN 11 MG/DL (7-18); BUN/CREATININE RATIO 14.5 (6.6-38.0); CALCIUM 9.1 MG/DL (8.5-10.1); CHLORIDE 103 MMOL/L (99-107); CREATININE 0.76 MG/DL (0.40-0.90); GLUCOSE 94 MG/DL (70-104); LIPASE 88 U/L (73-393); SODIUM 140 MMOL/L (135-145); TOTAL CARBON DIOXIDE 28.4 MMOL/L (24-32); TOTAL PROTEIN 7.5 G/DL (6.4-8.2); eGFR 78 ML/MIN
[2021-10-01 12:50] LABS: SQUAMOUS EPITHELIAL CELL,UR FEW /LPF (FEW)
[2021-10-01 12:51] LABS: BACTERIA,URINE FEW /HPF (Neg); RBC,URINE 0-2 /HPF (0-2); WBC,URINE 0-4 /HPF (0-4)
[2021-10-01 12:55] LABS: VALPROATE 120 UG/ML (50-100)
== END 2021-10-01 13:20 | disposition home or self-care (01) ==
LOC: ER 11:06
DX: K52.9 Noninfective gastroenteritis and colitis, unspecified (principal); R10.13 Epigastric pain; R10.11 Right upper quadrant pain; R11.0 Nausea; K21.9 Gastro-esophageal reflux disease without esophagitis; F20.9 Schizophrenia, unspecified; Z87.440 Personal history of urinary (tract) infections; Z88.8 Allergy status to other drugs, medicaments and biological substances; Z79.899 Other long term (current) drug therapy
CPT/HCPCS: 36415; 80053; 80164; 81001; 83690; 85025; 87077; 87088; 87186; 99283

== ENCOUNTER 2021-10-15 09:25 | Emergency (ER) | payer MEDICARE, MEDICAID ==
[~2021-10-15] VITALS: Ht 160 cm; Wt 72.7 kg
[2021-10-15 13:38] LABS: BASOPHILS % (AUTO) 0.4 % (0-1); HEMATOCRIT 41.9 % (35.0-45.0); LYMPHOCYTES # (AUTO) 3.4 X10'3 (1.1-4.8); MONOCYTES # (AUTO) 0.7 X10'3 (0-0.9); NEUTROPHILS # (AUTO) 1.7 X10'3 (1.8-7.7)
[2021-10-15 13:40] LABS: EOSINOPHILS % (AUTO) 0.8 % (0-6); HEMOGLOBIN 14.1 g/dl (12.0-16.0); MEAN CORPUSCULAR HEMOGLOBIN 31.3 PG (27.0-31.0); MEAN CORPUSCULAR HGB CONC 33.6 g/dL (33.0-36.5); MEAN CORPUSCULAR VOLUME 93.3 FL (78-98); MEAN PLATELET VOLUME 8.9 FL (7.4-10.4); MONOCYTES % (AUTO) 12.5 % (2-12); NEUTROPHILS % (AUTO) 28.3 % (42-75); PLATELET COUNT 128 X10'3 (140-440); RED BLOOD COUNT 4.49 X10'6 (4.20-5.60); RED CELL DISTRIBUTION WIDTH 14.1 % (11.5-14.5); WHITE BLOOD COUNT 5.8 X10'3 (4.5-11.0)
[2021-10-15 13:43] LABS: CLARITY,URINE CLOUDY (Clear); COLOR,URINE YELLOW (Yellow); GLUCOSE, URINE 100 mg/dl (Neg); KETONES,URINE NEGATIVE (Neg); LEUKOCYTE ESTERASE ,URINE TRACE (Neg); NITRITES, URINE NEGATIVE (Neg); OCCULT BLOOD,URINE NEGATIVE (Neg); PROTEIN,URINE NEGATIVE (Neg)
[2021-10-15 13:50] LABS: UA COLLECTION TYPE CLN CATCH MIDSTREAM
[2021-10-15 13:51] LABS: MUCUS STRANDS MANY /LPF (Neg)
[2021-10-15 13:52] LABS: BACTERIA,URINE FEW /HPF (Neg); RBC,URINE 0-2 /HPF (0-2)
[2021-10-15 13:53] LABS: ALANINE AMINOTRANSFERASE 28 U/L (12-78); ALBUMIN 3.8 G/DL (3.4-5.0); ALKALINE PHOSPHATASE 65 IU/L (46-116); ANION GAP 6 (8-16); ASPARTATE AMINO TRANSFERASE 30 U/L (10-37); BILIRUBIN,TOTAL 0.6 MG/DL (0.1-1.0); BLOOD UREA NITROGEN 7 MG/DL (7-18); BUN/CREATININE RATIO 9.3 (6.6-38.0); CHLORIDE 102 MMOL/L (99-107); CREATININE 0.75 MG/DL (0.40-0.90); GLUCOSE 94 MG/DL (70-104); POTASSIUM 3.5 MMOL/L (3.5-5.1); SODIUM 139 MMOL/L (135-145); TOTAL CARBON DIOXIDE 30.7 MMOL/L (24-32); TOTAL PROTEIN 7.6 G/DL (6.4-8.2); eGFR 79 ML/MIN
[2021-10-15 13:53] LABS: SQUAMOUS EPITHELIAL CELL,UR MODERATE /LPF (FEW); TRANSITIONAL EPI CELLS,URINE MODERATE /HPF; URINE AMPHETAMINE SCREEN NEGATIVE (Neg); URINE BARBITUATE SCREEN NEGATIVE (Neg); URINE BENZODIAZEPINES SCREEN NEGATIVE (Neg); URINE CANNABINOID SCREEN NEGATIVE (Neg); URINE COCAINE SCREEN NEGATIVE (Neg); URINE METHADONE SCREEN NEGATIVE (Neg); URINE OPIATE SCREEN NEGATIVE (Neg); URINE PHENCYCLIDINE SCREEN NEGATIVE (Neg)
[2021-10-15 13:55] LABS: TOTAL CELLS COUNTED 100
[2021-10-15 13:56] LABS: PLATELET ESTIMATE DECREASED
[2021-10-15 14:02] LABS: ETHANOL < 0.010 GM/DL (0.0-0.010); VALPROATE 94 UG/ML (50-100)
[2021-10-15] MEDS: cephalexin 250mg capsule PO SCH ×2 (14:58→20:08)
--- NOTE | 2021-10-15 15:04 | NUR ---
pt medicated with oral abx and snacks provided.
--- NOTE | 2021-10-15 15:06 | NUR ---
resident care assistant at bedside.
[2021-10-15] MEDS ORDERED: ACET-1025 PO (15:17)
[2021-10-15] MEDS ORDERED: TRAZ-251 PO (15:17)
[2021-10-15] MEDS ORDERED: LORA-269 PO (15:19)
--- NOTE | 2021-10-15 16:06 | NUR ---
Another caregiver at bedside ,Pt resting in bed quietly ,no distress noted.
--- NOTE | 2021-10-15 16:59 | NUR ---
edison el at bedside talking to women's health care nurse practitioner.
[2021-10-15] MEDS ORDERED: docusate sod 100mg capsule PO PRN (17:40)
[2021-10-15] MEDS ORDERED: non-formulary drug (Acetaminophen (Tylenol Extra Strength) 1 TAB) PO PRN (17:40)
--- NOTE | 2021-10-15 17:44 | NUR ---
overflow tech doing vitals at this time.
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
--- NOTE | 2021-10-15 19:38 | NUR ---
The patient is resting on her bed. She has a care provider from her agency. She is cooperative. She is much calmer now that the other patient is quiet. She is asking for her evening medications and reporting she feels anxious.
[2021-10-15] MEDS: acetaminophen 325mg tablet PO PRN (20:08)
[2021-10-15] MEDS: LORazepam 1 MG tablet PO SCH (20:08)
[2021-10-15] MEDS ORDERED: traZODone 50mg tablet PO SCH (21:00)
[2021-10-15] MEDS ORDERED: divalproex sod 250mg ER (24-hour) tablet PO SCH (21:00)
--- NOTE | 2021-10-15 21:23 | NUR ---
The patient appears to be sleeping. Care provider at the bedside
--- NOTE | 2021-10-15 23:03 | NUR ---
The patient appears to be sleeping
--- NOTE | 2021-10-16 01:01 | NUR ---
The patient appears to be sleeping
--- NOTE | 2021-10-16 02:06 | NUR ---
The patient is awake and talking with her care provider
[2021-10-16] MEDS: acetaminophen 325mg tablet PO PRN ×2 (02:37→10:22)
--- NOTE | 2021-10-16 03:31 | NUR ---
The patient is awake and talking with her care provider. She was made aware that her peers were trying to sleep
--- NOTE | 2021-10-16 03:52 | NUR ---
The patient is yelling at peer and is not responding to redirection by ER staff or her careprovider. Her bed assignment was moved away from other peer.
[2021-10-16] MEDS ORDERED: LORazepam 1 MG tablet PO ONE (04:15)
--- NOTE | 2021-10-16 04:21 | NUR ---
The patient is upset about female peer. Dr. Seth made aware and orders received.
--- NOTE | 2021-10-16 04:55 | NUR ---
The patient is up to use the bathroom and is pleasant at this time
[2021-10-16] MEDS ORDERED: levoTHYROXINE 25mcg tablet PO SCH (07:00)
--- NOTE | 2021-10-16 07:17 | NUR ---
patient asleep, caregiver at bedside.
[2021-10-16] MEDS: cephalexin 250mg capsule PO SCH (07:48)
[2021-10-16] MEDS: LORazepam 1 MG tablet PO SCH (07:48)
[2021-10-16] MEDS ORDERED: fluticasone nasal spray 16GM bottle NS SCH (08:00)
[2021-10-16] MEDS ORDERED: atorvastatin 20mg tablet PO SCH (08:00)
[2021-10-16] MEDS ORDERED: pantoprazole 40mg Tablet.DR PO SCH (08:00)
[2021-10-16] MEDS ORDERED: cloNIDine 0.1 mg tablet PO SCH (08:00)
--- NOTE | 2021-10-16 10:02 | NUR ---
patient c/o sternal chest pain while on bed,caregiver reports she's also had chest pain last night but unreported to Primary RN.EKG done,result shown to Dr. Read who ordered troponin.Per caregiver patient reports chest pain upon arrival yesterday but no notes in the chart or triage.We will monitor.Pt asleep.
--- NOTE | 2021-10-16 11:22 | NUR ---
patient to left side.caregiver at bedside.
--- NOTE | 2021-10-16 11:35 | NUR ---
Caregiver reports patient reported to her that she is still suicidal,patient does not verbalized to RN feeling of SI at this time.
--- NOTE | 2021-10-16 12:00 | NUR ---
patient eating lunch.
--- NOTE | 2021-10-16 13:30 | NUR ---
Pt laying supine, eyes closed, respirations are even and unlabored. Pt is in no acute distress. Caregiver at bedside.
[2021-10-16 13:58] VITALS: BP 120/82
[2021-10-16] MEDS ORDERED: CEPH250T PO (13:58)
== END 2021-10-16 14:03 | disposition home or self-care (01) ==
LOC: ER 09:25
DX: F25.0 Schizoaffective disorder, bipolar type (principal); Z20.822 Contact with and (suspected) exposure to COVID-19; F79 Unspecified intellectual disabilities; N39.0 Urinary tract infection, site not specified; R45.851 Suicidal ideations; K21.9 Gastro-esophageal reflux disease without esophagitis; Z91.018 Allergy to other foods; Z79.899 Other long term (current) drug therapy; Z87.440 Personal history of urinary (tract) infections
CPT/HCPCS: 36415; 80053; 80164; 80305; 80320; 81001; 84443; 84484; 85007; 85025; 87635; 93005; 99285; C9803

== ENCOUNTER 2021-12-09 12:40 | Inpatient (IN) | payer MEDICARE, MEDICAID ==
[~2021-12-09] VITALS: Ht 160 cm; Wt 92.3 kg
[~2021-12-09 12:40] MED LIST changes: +ACET-1025 PO; +LORazepam 1 MG tablet PO SCH; -MULT-1085 PO; -OLAN20TA34 PO; -PHEN51CR24 RC; -PROP1DRO7 OP; -RIFA550T PO; -SUCR1TAB34 PO
[2021-12-09 13:57] VITALS: BP 162/85
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
[2021-12-09] MEDS ORDERED: magnesium hydroxide 30ml (MOM) UD suspension PO PRN (14:25)
[2021-12-09] MEDS: acetaminophen 325mg tablet PO PRN ×2 (15:14→20:40)
--- NOTE | 2021-12-09 15:31 | NUR ---
[facility] Providers Jade [phone]
[2021-12-09] MEDS ORDERED: polyvinyl alcohol ophthalmic drops 15ml bottle EACHEYE PRN (16:00)
[2021-12-09 17:01] LABS: CLARITY,URINE CLEAR (Clear); COLOR,URINE YELLOW (Yellow); GLUCOSE, URINE NEGATIVE (Neg); KETONES,URINE NEGATIVE (Neg); LEUKOCYTE ESTERASE ,URINE TRACE (Neg); NITRITES, URINE NEGATIVE (Neg); OCCULT BLOOD,URINE NEGATIVE (Neg); PROTEIN,URINE NEGATIVE (Neg)
[2021-12-09 17:11] LABS: UA COLLECTION TYPE CLN CATCH MIDSTREAM
[2021-12-09 17:13] LABS: BACTERIA,URINE FEW /HPF (Neg); MUCUS STRANDS MODERATE /LPF (Neg); RBC,URINE 0-2 /HPF (0-2); SQUAMOUS EPITHELIAL CELL,UR FEW /LPF (FEW); WBC,URINE 0-4 /HPF (0-4)
[2021-12-09] MEDS ORDERED: LORA-269 PO (17:28)
[2021-12-09] MEDS ORDERED: PHEN28OI10 TOP (17:28)
[2021-12-09] MEDS ORDERED: LURA20TA PO (17:28)
[2021-12-09] MEDS ORDERED: LEVO25TA2 PO (17:28)
[2021-12-09] MEDS ORDERED: MUPI22OI30 TP (17:28)
[2021-12-09] MEDS ORDERED: lurasidone 60mg tablet PO ONE (17:40)
[2021-12-09] MEDS ORDERED: lactobacillus rhamnosus 10,000 MMU CELLS/CAPSULE PO ONE (17:45)
[2021-12-09] MEDS ORDERED: lurasidone 20mg tablet PO ONE (18:20)
[2021-12-09] MEDS ORDERED: mupirocin 2% ointment 22GM TP PRN (19:15)
[2021-12-09] MEDS ORDERED: PHENYLEPH/MIN OIL/PETROLAT hemorrhoid oint 57GM tube RC PRN (19:15)
[2021-12-09] MEDS ORDERED: docusate sod 100mg capsule PO PRN (19:15)
[2021-12-09 20:00] VITALS: BP 139/78
[2021-12-09] MEDS: traZODone 50mg tablet PO SCH (20:02)
[2021-12-09] MEDS: LORazepam 1 MG tablet PO SCH (20:02)
[2021-12-09] MEDS: sulfamethoxazole/trimethoprim DS (800/160mg) tablet PO SCH (20:02)
[2021-12-09] MEDS: divalproex sod 250mg ER (24-hour) tablet PO SCH (20:03)
[2021-12-09] MEDS: tetrahydrozoline 0.05% 15ml ophthalmic drops EACHEYE SCH (20:03)
[2021-12-09] MEDS ORDERED: quetiapine 100mg tablet PO ONE ×2 (21:39→21:40)
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
[2021-12-10] MEDS: tetrahydrozoline 0.05% 15ml ophthalmic drops EACHEYE SCH ×4 (02:00→20:07)
[2021-12-10] MEDS: LORazepam 1 MG tablet PO SCH ×3 (04:00→20:06)
--- NOTE | 2021-12-10 07:22 | NUR ---
Malnutrition consult: Pt transferred from group living facility for increased aggression. Pt reports 14-23lb wt loss per MST though pt is poor historian per nursing notes. No reliable recent scaled wt hx, though pt was 71kg back in 2015. No signs of muscle or fat wasting reported. No edema noted. Currently on Regular diet w/ 100% intake of first meal. At this time pt does not meet minimum criteria for malnutrition. Addendum: 12/10/21 at [address] Amended: Links added.
[2021-12-10 08:00] VITALS: BP 106/64
[2021-12-10] MEDS: fluticasone nasal spray 16GM bottle NS SCH (08:00)
[2021-12-10] MEDS ORDERED: lurasidone 20mg tablet PO SCH (08:00)
[2021-12-10] MEDS: atorvastatin 20mg tablet PO SCH (09:08)
[2021-12-10] MEDS: cloNIDine 0.1 mg tablet PO SCH (09:08)
[2021-12-10] MEDS: lactobacillus rhamnosus 10,000 MMU CELLS/CAPSULE PO SCH (09:08)
[2021-12-10] MEDS: levoTHYROXINE 25mcg tablet PO SCH (09:09)
[2021-12-10] MEDS: pantoprazole 40mg Tablet.DR PO SCH (09:09)
[2021-12-10] MEDS: sulfamethoxazole/trimethoprim DS (800/160mg) tablet PO SCH ×2 (09:09→20:06)
[2021-12-10 09:41] LABS: HEMOGLOBIN A1C 5.1 % (4.5-6.2)
[2021-12-10 09:52] LABS: CHOL/HDL RATIO 3.7 (0.00-4.99); CHOLESTEROL 156 MG/DL (0-200); HDL CHOLESTEROL 42 MG/DL (35-60); LDL CHOLESTEROL 86 MG/DL (50-100); TRIGLYCERIDES 172 MG/DL (20-135)
[2021-12-10] MEDS: acetaminophen 325mg tablet PO PRN ×2 (13:41→19:14)
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
[2021-12-10] MEDS: traZODone 50mg tablet PO SCH (20:06)
[2021-12-10] MEDS: divalproex sod 250mg ER (24-hour) tablet PO SCH (20:06)
[2021-12-10] MEDS: OLANZapine 5mg rapidly disint. tablet PO SCH (20:06)
[2021-12-10 21:46] VITALS: BP 138/66
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
[2021-12-11] MEDS: tetrahydrozoline 0.05% 15ml ophthalmic drops EACHEYE SCH ×4 (02:00→20:02)
[2021-12-11] MEDS: LORazepam 1 MG tablet PO SCH ×3 (04:01→20:02)
[2021-12-11 08:00] VITALS: BP 116/74
[2021-12-11] MEDS: lactobacillus rhamnosus 10,000 MMU CELLS/CAPSULE PO SCH (08:24)
[2021-12-11] MEDS: cloNIDine 0.1 mg tablet PO SCH (08:24)
[2021-12-11] MEDS: pantoprazole 40mg Tablet.DR PO SCH (08:25)
[2021-12-11] MEDS: OLANZapine 5mg rapidly disint. tablet PO SCH ×2 (08:25→20:02)
[2021-12-11] MEDS: levoTHYROXINE 25mcg tablet PO SCH (08:25)
[2021-12-11] MEDS: atorvastatin 20mg tablet PO SCH (08:25)
[2021-12-11] MEDS: sulfamethoxazole/trimethoprim DS (800/160mg) tablet PO SCH ×2 (08:25→20:02)
[2021-12-11] MEDS: fluticasone nasal spray 16GM bottle NS SCH (08:26)
[2021-12-11] MEDS: acetaminophen 325mg tablet PO PRN ×2 (11:12→16:16)
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
[2021-12-11 19:00] VITALS: BP 122/60
[2021-12-11] MEDS: divalproex sod 250mg ER (24-hour) tablet PO SCH (20:02)
[2021-12-11] MEDS: traZODone 50mg tablet PO SCH (20:02)
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
[2021-12-12] MEDS: tetrahydrozoline 0.05% 15ml ophthalmic drops EACHEYE SCH ×4 (02:00→20:48)
[2021-12-12] MEDS: acetaminophen 325mg tablet PO PRN ×2 (04:29→20:36)
[2021-12-12] MEDS: LORazepam 1 MG tablet PO SCH ×3 (04:29→19:18)
[2021-12-12 08:00] VITALS: BP 118/60
[2021-12-12] MEDS: fluticasone nasal spray 16GM bottle NS SCH (08:06)
[2021-12-12] MEDS: cloNIDine 0.1 mg tablet PO SCH (08:07)
[2021-12-12] MEDS: lactobacillus rhamnosus 10,000 MMU CELLS/CAPSULE PO SCH (08:08)
[2021-12-12] MEDS: pantoprazole 40mg Tablet.DR PO SCH (08:08)
[2021-12-12] MEDS: sulfamethoxazole/trimethoprim DS (800/160mg) tablet PO SCH (08:08)
[2021-12-12] MEDS: atorvastatin 20mg tablet PO SCH (08:08)
[2021-12-12] MEDS: levoTHYROXINE 25mcg tablet PO SCH (08:08)
[2021-12-12] MEDS: OLANZapine 5mg rapidly disint. tablet PO SCH ×2 (08:08→20:34)
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
[2021-12-12] MEDS: mupirocin 2% ointment 22GM TP SCH ×2 (18:13→20:47)
[2021-12-12 19:00] VITALS: BP 125/73
[2021-12-12] MEDS: traZODone 50mg tablet PO SCH (20:34)
[2021-12-12] MEDS: divalproex sod 250mg ER (24-hour) tablet PO SCH (20:42)
[2021-12-13] MEDS: tetrahydrozoline 0.05% 15ml ophthalmic drops EACHEYE SCH ×4 (02:00→20:59)
[2021-12-13] MEDS: LORazepam 1 MG tablet PO SCH ×3 (03:14→20:51)
[2021-12-13] MEDS: acetaminophen 325mg tablet PO PRN ×2 (04:42→10:10)
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
--- NOTE | 2021-12-13 07:04 | NUR ---
Initial: Pt admitted w/ schizoaffective disorder per EMR. Currently on Regular diet w/ mostly 100% intake of meals meeting needs at this time. M 12/09 w/ PRN bowel care available. No nutrition intervention implemented at this time, will continue to monitor. Recs: 1. Continue Regular diet as tolerated 2. Bowel care per rx 3. Weekly wts Addendum: 12/13/21 at [address] Amended: Links added.
[2021-12-13 08:00] VITALS: BP 136/67
[2021-12-13] MEDS: cloNIDine 0.1 mg tablet PO SCH (08:13)
[2021-12-13] MEDS: mupirocin 2% ointment 22GM TP SCH ×2 (08:13→20:59)
[2021-12-13] MEDS: fluticasone nasal spray 16GM bottle NS SCH (08:13)
[2021-12-13] MEDS: levoTHYROXINE 25mcg tablet PO SCH (08:14)
[2021-12-13] MEDS: OLANZapine 5mg rapidly disint. tablet PO SCH ×2 (08:14→20:52)
[2021-12-13] MEDS: pantoprazole 40mg Tablet.DR PO SCH (08:14)
[2021-12-13] MEDS: atorvastatin 20mg tablet PO SCH (08:14)
--- NOTE | 2021-12-13 17:10 | NUR ---
Nursing Progress Note Problem: Pt. physically aggressive towards her staff at [facility] who are on site 24 hrs. a day to help her with meals and ADLs. Pt. reportedly attempted to grab a kitchen knife from the staff cooking her dinner and threatening to stab them as well as herself Pt. has been becoming increasingly more labile and aggressive with her help. Pt. was also reportedly threatening to walk out in traffic. Pt. has hx of Schizoaffective d/o, bipolar, developmental delay, hypothyroidism, MRSA, and GERD. Intervention: Maintained a safe and supportive environment, administered scheduled and PRN medications. Provided clear and simple instructions, encouraged going to group, provided active listening and positive encouragement, encouraged participation on the unit, provided redirection and clear boundaries. Response: Received Pt in bed sleeping deeply and w/o distress. Pt was cooperative with vitals and AM assessments. Pt overall pleasant and cooperative and ate meals and snacks. She c/o headache and received Tylenol with modest effect. Pt napped in AM in chair and watched TV in community room and socialized in afternoon. Pt appreciates attention and reassurance. Pt has not displayed aggressive or violent behavior. Plan: Pt. requires crisis stabilization. Pt. continues to require a safe and supportive environment.
[2021-12-13 19:47] VITALS: BP 135/70
[2021-12-13] MEDS: divalproex sod 250mg ER (24-hour) tablet PO SCH (20:51)
[2021-12-13] MEDS: traZODone 50mg tablet PO SCH (20:52)
[2021-12-13] MEDS ORDERED: OLANZapine 2.5MG tablet PO ONE (23:05)
--- NOTE | 2021-12-13 23:54 | NUR ---
Nursing Progress Note Problem: Pt. physically aggressive towards her staff at [facility] who are on site 24 hrs. a day to help her with meals and ADLs. Pt. reportedly attempted to grab a kitchen knife from the staff cooking her dinner and threatening to stab them as well as herself Pt. has been becoming increasingly more labile and aggressive with her help. Pt. was also reportedly threatening to walk out in traffic. Pt. has hx of Schizoaffective d/o, bipolar, developmental delay, hypothyroidism, MRSA, and GERD. Intervention: Maintained a safe and supportive environment, administered scheduled and PRN medications. Provided clear and simple instructions, encouraged going to group, provided active listening and positive encouragement, encouraged participation on the unit, provided redirection and clear boundaries. Response: Received Pt in community room finishing dinner. Pt walked out into hallway and reported she was feeling frustrated, but unable to elaborate further. Pt walked to room and used bathroom and then became irate and yelled at another Pt in Rec. room. Pt taken to Community room and this RN talked and stayed with her. She appeared to calm and stated she was going to ignore the other Pt that irritated her. Pt had snack and took HS meds w/o issue. Pt came out of room stating I cant sleep She threw trash can out of her room and went to rec. room where she was slapping herself in the forehead. Dr Munroe called and order received for Zyprexa 5mg which was given to Pt and lights turned out in her room. Assured and encouraged her to close her eyes and closed door partially to decrease light in her room. Pt put herself from chair into bed and is currently sleeping. Plan: Pt. requires crisis stabilization. Pt. continues to require a safe and supportive environment.
[2021-12-14] MEDS: tetrahydrozoline 0.05% 15ml ophthalmic drops EACHEYE SCH ×4 (02:00→20:35)
[2021-12-14] MEDS: LORazepam 1 MG tablet PO SCH ×3 (04:00→19:07)
[2021-12-14 08:00] VITALS: BP 126/77
[2021-12-14] MEDS: OLANZapine 5mg rapidly disint. tablet PO SCH ×2 (08:06→20:35)
[2021-12-14] MEDS: cloNIDine 0.1 mg tablet PO SCH (08:06)
[2021-12-14] MEDS: pantoprazole 40mg Tablet.DR PO SCH (08:06)
[2021-12-14] MEDS: atorvastatin 20mg tablet PO SCH (08:06)
[2021-12-14] MEDS: fluticasone nasal spray 16GM bottle NS SCH (08:08)
[2021-12-14] MEDS: mupirocin 2% ointment 22GM TP SCH ×2 (08:08→20:35)
[2021-12-14] MEDS: levoTHYROXINE 25mcg tablet PO SCH (08:08)
--- NOTE | 2021-12-14 08:40 | NUR ---
CM-Continuity of Care Presenting Issues: Pt's 5250 Hearing is today, pt lacks capacity to formulate a dcp for herself. Pt was 5150 after a series of aggressive outbursts in the home, threatening patient support associate w/a knife, threatening to harm herself when she has conflict w/care providers. Pt appears cope w/distress much like a child between 6 and 8 years of age (i.e throwing severe behavioral tantrums to control external environment or get her wants). These bxs appear to be associated w/pt's DD/MR conditions and will continue to impair her in the home & community settings, as well as strain relationships w/caregivers/providers. Current Living Situation: Pt's received a 60-day notice on 11/17/21 to vacate current home due to bxs; pt currently lives in a [facility]-supported living situation where she has [facility] care providers come to the home 2x/day to provide assistance w/ADLs, meds management. These providers have refused to continue to providing services for clt as a result of her aggressive & threatening bxs. [facility] is trying to secure new placement for pt at this time as they do not believe that pt can rt to her home and continue living in an [facility], [facility] believe that pt requires a higher level of care at this time. Legally pt has a home until . Ideally, a home with caregivers/providers with training to work w/an adult who has the socio-emotional & developmental distress regulatory capacity of a child between ages of 6 & 8 would be most beneficial for pt. Interventions: Clinician had t/c w/pt's [facility] Fire Extinguisher Tester- Neida @ [phone] and engaged Neida in pre-dcp activities. Per t/c, [facility] has not short term plan for pt but will continue to seek placement. Plan: Pt has a home to rt to until January however, pt requires intensive support in the home in order to be safe from impulsive bxs. [facility] seeking placement in group homes and/or SNF. Alva Tavera LCSW Addendum: 12/14/21 at 0910 by Alva CAMERON Amended: Links added.
--- NOTE | 2021-12-14 14:34 | NUR ---
[address] ILA Zamora
--- NOTE | 2021-12-14 15:37 | NUR ---
Nursing Progress Note Problem: Pt. physically aggressive towards staff at [facility] who are on site 24 hrs. a day to help her with meals and ADLs. Pt. reportedly attempted to grab a kitchen knife from the staff cooking dinner and threatened to stab them as well as herself. Pt. has been becoming increasingly more labile and aggressive with staff. Pt. was also reportedly threatening to walk out in traffic. Pt. has hx of Schizoaffective d/o, bipolar, developmental delay, hypothyroidism, MRSA, and GERD. Intervention: Provided one on one morning physical assessment. Administered scheduled medications. Addressed labs and contacted hospitalist, Dr. Patino regarding TSH 7.15. Ordered increase on Levothyroxine per verbal order. Provided education to pt of the increase of her daily thyroid medication. Administered Covid Binax Antigen test per verbal orders from COURTNEY Johns. Encouraged group attendance along with socialization with peers. Provide therapeutic communication with active listening. Response: Pt cooperative with routine morning assessment and medication administration. Pt acknowledges understanding that "a medication has been increased." Pt cooperative with Covid testing. She spent some time in the day room in group and socializing with peers. Plan: Pt. requires crisis stabilization. Pt. continues to require a safe and supportive environment.
[2021-12-14] MEDS: acetaminophen 325mg tablet PO PRN (15:48)
[2021-12-14 20:03] VITALS: BP 122/68
[2021-12-14] MEDS: divalproex sod 250mg ER (24-hour) tablet PO SCH (20:35)
[2021-12-14] MEDS: traZODone 50mg tablet PO SCH (20:35)
[2021-12-15] MEDS: traZODone 50mg tablet PO SCH ×3 (00:02→21:26)
--- NOTE | 2021-12-15 00:47 | NUR ---
Nursing Progress Note Problem: Pt. physically aggressive towards her staff at [facility] who are on site 24 hrs. a day to help her with meals and ADLs. Pt. reportedly attempted to grab a kitchen knife from the staff cooking her dinner and threatening to stab them as well as herself Pt. has been becoming increasingly more labile and aggressive with her help. Pt. was also reportedly threatening to walk out in traffic. Pt. has hx of Schizoaffective d/o, bipolar, developmental delay, hypothyroidism, MRSA, and GERD. Intervention: Maintained a safe and supportive environment, administered scheduled and PRN medications. Provided clear and simple instructions, encouraged going to group, provided active listening and positive encouragement, encouraged participation on the unit, provided redirection and clear boundaries. Response: Pt was in her room at change of shift, walks in the hallway using FWW. Pt came to the nurses station c/o a patient "yelling at me and flipping me off!" Pt couldnt say who was yelling at her. Pt went into the group room and was screaming. Pt pointed at the wall and said "She keeps saying things to me!" Nobody was there. Pt was given HS meds after having a snack and went to bed. Pt woke later saying she couldnt sleep and wanted more snacks, but she hadn't eaten the snacks in her room yet. pt was given repeat trazodone was given and pt went back to sleep. Plan: Pt. requires crisis stabilization. Pt. continues to require a safe and supportive environment.
[2021-12-15] MEDS: tetrahydrozoline 0.05% 15ml ophthalmic drops EACHEYE SCH ×4 (02:00→20:45)
[2021-12-15] MEDS: LORazepam 1 MG tablet PO SCH ×3 (04:00→17:22)
[2021-12-15 07:44] VITALS: BP 133/86
[2021-12-15] MEDS: atorvastatin 20mg tablet PO SCH (08:20)
[2021-12-15] MEDS: cloNIDine 0.1 mg tablet PO SCH (08:20)
[2021-12-15] MEDS: levoTHYROXINE 25mcg tablet PO SCH (08:20)
[2021-12-15] MEDS: fluticasone nasal spray 16GM bottle NS SCH (08:20)
[2021-12-15] MEDS: pantoprazole 40mg Tablet.DR PO SCH (08:20)
[2021-12-15] MEDS: OLANZapine 5mg rapidly disint. tablet PO SCH ×3 (08:20→20:45)
[2021-12-15] MEDS: mupirocin 2% ointment 22GM TP SCH ×2 (08:22→20:45)
[2021-12-15] MEDS: acetaminophen 325mg tablet PO PRN (11:31)
--- NOTE | 2021-12-15 13:52 | NUR ---
Nursing Progress Note: SANDRA Problem: Pt. physically aggressive towards staff at [facility] who are on site 24 hrs. a day to help her with meals and ADLs. Pt. reportedly attempted to grab a kitchen knife from the staff cooking dinner and threatened to stab them as well as herself. Pt. has been becoming increasingly more labile and aggressive with staff. Pt. was also reportedly threatening to walk out in traffic. Pt. has hx of schizoaffective d/o, bipolar, developmental delay, hypothyroidism, MRSA, and GERD. Intervention: Introduced self and established rapport, maintained a safe and supportive environment, ensured contract for safety for self and others, provided clear and simple instructions, provided active listening and positive encouragement, set boundaries and limitations as pt can be intrusive, encouraged pt to participate in group, and maintained Q 15min safety check. Response: Pt was sleeping comfortably at shift change. Pt was compliant with care and medication. Pt is able to be redirected when she pushes her way into conversations. Pt was friendly with peers without irritation. Noted pt sitting in group room coloring and looking through papers. Pt denies suicidal/homicidal thoughts, A/VH. Pt tells director underwriter sales I am having a hard time. I dont want to leave here, this helps me here. Pt also stated she was feeling sad because my parents arent here anymore. Pt showered and assisted director underwriter sales in making her bed. Plan: Patient is unable to develop a plan for her basic needs r/t her mental health. Pt requires medication adjustment until it reaches therapeutic level.
[2021-12-15 19:47] VITALS: BP 151/79
[2021-12-15] MEDS: divalproex sod 250mg ER (24-hour) tablet PO SCH (20:44)
--- NOTE | 2021-12-15 22:56 | NUR ---
Nursing Progress Note: Problem: Pt. physically aggressive towards staff at [facility] who are on site 24 hrs. a day to help her with meals and ADLs. Pt. reportedly attempted to grab a kitchen knife from the staff cooking dinner and threatened to stab them as well as herself. Pt. has been becoming increasingly more labile and aggressive with staff. Pt. was also reportedly threatening to walk out in traffic. Pt. has hx of schizoaffective d/o, bipolar, developmental delay, hypothyroidism, MRSA, and GERD. Intervention: Introduced self and established rapport, maintained a safe and supportive environment, ensured contract for safety for self and others, provided clear and simple instructions, provided active listening and positive encouragement, set boundaries and limitations as pt can be intrusive, encouraged pt to participate in group, and maintained Q 15min safety check. Response:Pt was watching tv at change of shift and approached nurses station stating "Im bored." Pt was assisted with picking a movie on tv. Pt was sitting alone but within LOS of nursing station and patient was seen climbing out of her chair and sitting on her hands and knees and reported she fell. Pt was assisted back in the chair. A short time later pt states she wanted to play games with another patient and that patient stated they would in few minutes. Pt got out of her chair and was seen on the camera walking to the other patients door, she climbed down on the floor and began rolling around and yelling "Help! Help! I fell!" Pt was assisted to her feet. Pt did not fall either time and was witnessed to be crawling to the floor each time. Pts FWW had been removed by day staff because pt was often not using the walker, or dragging it around rather than using it for support. I asked pt if she would like me to help her and as I was walking w/her my arm on her arm she began pulling me along w/her and seems to be quite stable on her feet. She does seem to have trouble navigating the non skid socks and may need PT to determine if FWW or a pair of shoes while she is walking on the unit would be most beneficial. Pts mood is labile, pleasant and smiling then agitated, banging on the wall. Pt was given HS meds and prn trazodone x2 before deciding she was tired enough to go to bed. Pt requested to be tucked into bed then minutes later began cursing and yelling at staff and threw her trash can into the hallway. Pt was redirected and went to sleep. Plan: Patient is unable to develop a plan for her basic needs r/t her mental health. Pt requires medication adjustment until it reaches therapeutic level.
[2021-12-16] MEDS: acetaminophen 325mg tablet PO PRN ×3 (00:14→14:04)
[2021-12-16] MEDS: tetrahydrozoline 0.05% 15ml ophthalmic drops EACHEYE SCH ×4 (02:00→20:51)
[2021-12-16] MEDS: pantoprazole 40mg Tablet.DR PO SCH (08:11)
[2021-12-16] MEDS: levoTHYROXINE 25mcg tablet PO SCH (08:11)
[2021-12-16] MEDS: fluticasone nasal spray 16GM bottle NS SCH (08:11)
[2021-12-16] MEDS: OLANZapine 5mg rapidly disint. tablet PO SCH ×3 (08:12→20:17)
[2021-12-16] MEDS: atorvastatin 20mg tablet PO SCH (08:12)
[2021-12-16] MEDS: LORazepam 1 MG tablet PO SCH ×2 (08:12→17:45)
[2021-12-16] MEDS: cloNIDine 0.1 mg tablet PO SCH (08:12)
[2021-12-16] MEDS: mupirocin 2% ointment 22GM TP SCH ×2 (08:12→20:17)
[2021-12-16 08:35] VITALS: BP 155/80
--- NOTE | 2021-12-16 13:34 | NUR ---
Nursing Progress Note: SANDRA Problem: Pt. physically aggressive towards staff at [facility] who are on site 24 hrs. a day to help her with meals and ADLs. Pt. reportedly attempted to grab a kitchen knife from the staff cooking dinner and threatened to stab them as well as herself. Pt. has been becoming increasingly more labile and aggressive with staff. Pt. was also reportedly threatening to walk out in traffic. Pt. has hx of schizoaffective d/o, bipolar, developmental delay, hypothyroidism, MRSA, and GERD. Intervention: Introduced self and established rapport, maintained a safe and supportive environment, ensured contract for safety for self and others, provided clear and simple instructions, provided active listening and positive encouragement, set boundaries and limitations as pt can be intrusive, briefly required soft helmet as she was hitting her head against the wall, maintained Q 15min safety check. Response: Received patient sleeping at shift change. Per NOC shift report pt had a difficult time falling asleep and was being disruptive. Pt was compliant with care and medication. Pt began acting out hitting her head against the wall. Pt was given a soft helmet as she wouldnt comply with not hitting her head. After about 15 mins pt came to writer editor saying helmet was too big and she couldnt see the T.V. Discussed with pt the importance of not hitting her head, if she could refrain from that she wouldnt have to wear the helmet. Pt agreed and was compliant. Pt took about 1 nap in the morning, which helped improve her mood. Pt hung out in the group room socializing appropriately with peers. Plan: Patient is unable to develop a plan for her basic needs r/t her mental health. Pt requires medication adjustment until it reaches therapeutic level. Addendum: 12/16/21 at 1754 by Quin De Los Santos RN Dr Ruiz ordered fungal cream for pt's right great toe. Order placed.
[2021-12-16 19:36] VITALS: BP 137/80
[2021-12-16] MEDS: divalproex sod 250mg ER (24-hour) tablet PO SCH (20:17)
[2021-12-16] MEDS: traZODone 50mg tablet PO SCH (20:17)
[2021-12-16] MEDS: clotrimazole topical cream 15gm tube TP SCH (20:51)
--- NOTE | 2021-12-16 21:21 | NUR ---
Nursing Progress Note: SANDRA Problem: Pt. physically aggressive towards staff at [facility] who are on site 24 hrs. a day to help her with meals and ADLs. Pt. reportedly attempted to grab a kitchen knife from the staff cooking dinner and threatened to stab them as well as herself. Pt. has been becoming increasingly more labile and aggressive with staff. Pt. was also reportedly threatening to walk out in traffic. Pt. has hx of schizoaffective d/o, bipolar, developmental delay, hypothyroidism, MRSA, and GERD. Intervention: Introduced self and established rapport, maintained a safe and supportive environment, ensured contract for safety for self and others, provided clear and simple instructions, provided active listening and positive encouragement, set boundaries and limitations as pt can be intrusive, briefly required soft helmet as she was hitting her head against the wall, maintained Q 15min safety check. Response: Pt was pleasant at change of shift, states slippers are easy for her to walk in. Pt requested a shower and was assisted with showering. Pt had snack with group and is med compliant. Pt is smiling and interacting pleasantly with staff and peers. Pt was given repeat prn trazodone before going to bed. Pt does not like to go to bed so she tries to sit up and becomes very fatigued and nods in chair in rec room. Pt was assisted with walking to bed. She likes to be "tucked into bed" and get help w/putting on her blankets and likes the low light on while she sleeps. Plan: Patient is unable to develop a plan for her basic needs r/t her mental health. Pt requires medication adjustment until it reaches therapeutic level.
[2021-12-17] MEDS: tetrahydrozoline 0.05% 15ml ophthalmic drops EACHEYE SCH ×4 (02:00→20:29)
[2021-12-17] MEDS: acetaminophen 325mg tablet PO PRN ×4 (06:41→23:31)
[2021-12-17] MEDS: levoTHYROXINE 25mcg tablet PO SCH (07:26)
[2021-12-17] MEDS: fluticasone nasal spray 16GM bottle NS SCH (07:32)
[2021-12-17] MEDS: atorvastatin 20mg tablet PO SCH (07:34)
[2021-12-17] MEDS: pantoprazole 40mg Tablet.DR PO SCH (07:34)
[2021-12-17] MEDS: cloNIDine 0.1 mg tablet PO SCH (07:34)
[2021-12-17] MEDS: LORazepam 1 MG tablet PO SCH ×2 (07:34→17:04)
[2021-12-17] MEDS: OLANZapine 5mg rapidly disint. tablet PO SCH ×3 (07:35→20:09)
[2021-12-17 07:51] VITALS: BP 99/70
[2021-12-17] MEDS: mupirocin 2% ointment 22GM TP SCH ×2 (08:58→20:29)
[2021-12-17] MEDS: clotrimazole topical cream 15gm tube TP SCH ×2 (08:58→20:29)
--- NOTE | 2021-12-17 16:01 | NUR ---
Nursing Progress Note: Problem: Pt. physically aggressive towards staff at [facility] who are on site 24 hrs. a day to help her with meals and ADLs. Pt. reportedly attempted to grab a kitchen knife from the staff cooking dinner and threatened to stab them as well as herself. Pt. has been becoming increasingly more labile and aggressive with staff. Pt. was also reportedly threatening to walk out in traffic. Pt. has hx of schizoaffective d/o, bipolar, developmental delay, hypothyroidism, MRSA, and GERD. Intervention: Introduced self and established rapport, maintained a safe and supportive environment, ensured contract for safety for self and others, provided clear and simple instructions, provided active listening and positive encouragement, set boundaries and limitations as pt can be intrusive, encouraged pt to participate in group, and maintained Q 15min safety check. Response: Patient up early for coffee. She c/o headache, and Tylenol was administered with stated relief. Patient spent the morning in the group room after breakfast and morning med pass. She was upset about not getting to use a walker, but she got over it quickly. She has been ambulating fine all day. She has spent almost all day coloring in the group room. Patient has been friendly and cooperative all day. She has been compliant with all medications today, her mood has been good, and she's had no behavioral outbursts Plan: Patient is unable to develop a plan for her basic needs r/t her mental health. Pt requires medication adjustment until it reaches therapeutic level.
[2021-12-17 19:00] VITALS: BP 139/83
[2021-12-17] MEDS: divalproex sod 250mg ER (24-hour) tablet PO SCH (20:13)
[2021-12-17] MEDS: traZODone 50mg tablet PO SCH (20:14)
--- NOTE | 2021-12-18 01:24 | NUR ---
Nursing Progress Note: Problem: Pt. physically aggressive towards staff at [facility] who are on site 24 hrs. a day to help her with meals and ADLs. Pt. reportedly attempted to grab a kitchen knife from the staff cooking dinner and threatened to stab them as well as herself. Pt. has been becoming increasingly more labile and aggressive with staff. Pt. was also reportedly threatening to walk out in traffic. Pt. has hx of schizoaffective d/o, bipolar, developmental delay, hypothyroidism, MRSA, and GERD. Intervention: Introduced self and established rapport, maintained a safe and supportive environment, ensured contract for safety for self and others, provided clear and simple instructions, provided active listening and positive encouragement, set boundaries and limitations as pt can be intrusive, briefly required soft helmet as she was hitting her head against the wall, maintained Q 15min safety check. Response: Pt was upbeat and friendly at shift change with staff and peers. She smiles and makes good eye contact. She is medication compliant and denies SI/HI/AH/VH at this time although she is seem mumbling to herself at times. She asks for hugs before bed, which RNs provided, and she is able to sleep soon after. Plan: Patient is unable to develop a plan for her basic needs r/t her mental health. Pt requires medication adjustment until it reaches therapeutic level.
[2021-12-18] MEDS: tetrahydrozoline 0.05% 15ml ophthalmic drops EACHEYE SCH ×4 (02:17→20:37)
[2021-12-18] MEDS: levoTHYROXINE 25mcg tablet PO SCH (07:00)
[2021-12-18] MEDS: LORazepam 1 MG tablet PO SCH ×2 (07:00→17:09)
[2021-12-18] MEDS: pantoprazole 40mg Tablet.DR PO SCH (07:00)
[2021-12-18] MEDS: OLANZapine 5mg rapidly disint. tablet PO SCH ×3 (07:00→20:37)
[2021-12-18] MEDS: atorvastatin 20mg tablet PO SCH (07:00)
[2021-12-18] MEDS: cloNIDine 0.1 mg tablet PO SCH (07:00)
[2021-12-18] MEDS: fluticasone nasal spray 16GM bottle NS SCH (07:01)
[2021-12-18] MEDS: clotrimazole topical cream 15gm tube TP SCH ×2 (07:02→20:37)
[2021-12-18] MEDS: mupirocin 2% ointment 22GM TP SCH ×2 (07:02→20:37)
[2021-12-18 08:12] VITALS: BP 161/74
[2021-12-18] MEDS: acetaminophen 325mg tablet PO PRN ×2 (10:05→16:56)
--- NOTE | 2021-12-18 14:23 | NUR ---
Nursing Progress Note: Problem: Pt. physically aggressive towards staff at [facility] who are on site 24 hrs. a day to help her with meals and ADLs. Pt. reportedly attempted to grab a kitchen knife from the staff cooking dinner and threatened to stab them as well as herself. Pt. has been becoming increasingly more labile and aggressive with staff. Pt. was also reportedly threatening to walk out in traffic. Pt. has hx of schizoaffective d/o, bipolar, developmental delay, hypothyroidism, MRSA, and GERD. Intervention: Introduced self and established rapport, maintained a safe and supportive environment, ensured contract for safety for self and others, provided clear and simple instructions, provided active listening and positive encouragement, set boundaries and limitations as pt can be intrusive, encouraged pt to participate in group, and maintained Q 15min safety check. Response: Patient was up before start of shift. She was provided with Tylenol for headache with stated effectiveness. After breakfast and morning med pass, patient took a shower. She was assisted with washing her hair. Patient has been in a good mood all day, spending time in the group room with her peers coloring and playing bingo. Shes ambulating fine without a walker. Patient compliant with all medications today. She has spent the majority of the day in the group room. There has been no outbursts today Plan: Patient is unable to develop a plan for her basic needs r/t her mental health. Pt requires medication adjustment until it reaches therapeutic level.
[2021-12-18 19:37] VITALS: BP 130/45
[2021-12-18] MEDS: traZODone 50mg tablet PO SCH (20:36)
[2021-12-18] MEDS: divalproex sod 250mg ER (24-hour) tablet PO SCH (20:36)
[2021-12-19] MEDS: acetaminophen 325mg tablet PO PRN ×3 (00:10→14:26)
[2021-12-19] MEDS: traZODone 50mg tablet PO SCH ×2 (00:11→20:25)
--- NOTE | 2021-12-19 01:46 | NUR ---
Nursing Progress Note: Problem: Pt. physically aggressive towards staff at [facility] who are on site 24 hrs. a day to help her with meals and ADLs. Pt. reportedly attempted to grab a kitchen knife from the staff cooking dinner and threatened to stab them as well as herself. Pt. has been becoming increasingly more labile and aggressive with staff. Pt. was also reportedly threatening to walk out in traffic. Pt. has hx of schizoaffective d/o, bipolar, developmental delay, hypothyroidism, MRSA, and GERD. Intervention: Introduced self and established rapport, maintained a safe and supportive environment, ensured contract for safety for self and others, provided clear and simple instructions, provided active listening and positive encouragement, set boundaries and limitations as pt can be intrusive, briefly required soft helmet as she was hitting her head against the wall, maintained Q 15min safety check. Response: Pt is interactive with staff and peers, she is intrusive at times. She requests math work sheets which are printed out for her along with coloring sheets. She appears happy after this, but then kicks the trash can in the rec room over and kicks an open milk around. She cannot give reason why she did this. She goes to bed and staff tucks her in, she wakes up around 0000 and says her back hurts and she wants sleep meds. Tylenol given and second dose of trazodone given with good effect. Plan: Patient is unable to develop a plan for her basic needs r/t her mental health. Pt requires medication adjustment until it reaches therapeutic level.
[2021-12-19] MEDS: tetrahydrozoline 0.05% 15ml ophthalmic drops EACHEYE SCH ×4 (02:00→20:25)
[2021-12-19] MEDS: levoTHYROXINE 25mcg tablet PO SCH (07:08)
[2021-12-19] MEDS: cloNIDine 0.1 mg tablet PO SCH (07:08)
[2021-12-19] MEDS: pantoprazole 40mg Tablet.DR PO SCH (07:08)
[2021-12-19] MEDS: atorvastatin 20mg tablet PO SCH (07:08)
[2021-12-19] MEDS: OLANZapine 5mg rapidly disint. tablet PO SCH ×3 (07:08→20:25)
[2021-12-19] MEDS: LORazepam 1 MG tablet PO SCH ×2 (07:08→17:45)
[2021-12-19] MEDS: fluticasone nasal spray 16GM bottle NS SCH (07:11)
[2021-12-19] MEDS: mupirocin 2% ointment 22GM TP SCH ×2 (07:11→20:25)
[2021-12-19] MEDS: clotrimazole topical cream 15gm tube TP SCH ×2 (07:12→20:25)
[2021-12-19 08:00] VITALS: BP 145/51
[2021-12-19] MEDS ORDERED: LORazepam 1 MG tablet PO ONE (12:00)
[2021-12-19] MEDS: mag hydrox/Alum hydrox/simeth 30ml oral suspension PO PRN (13:15)
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
[2021-12-19 19:00] VITALS: BP 122/70
[2021-12-19] MEDS: divalproex sod 250mg ER (24-hour) tablet PO SCH (20:25)
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
[2021-12-20] MEDS: acetaminophen 325mg tablet PO PRN ×3 (05:42→18:04)
--- NOTE | 2021-12-20 07:04 | NUR ---
Reassessment: Pt currently on Regular diet w/ mostly 100% intake of meals meeting needs at this time. M 12/17 w/ PRN bowel care available. No nutrition intervention implemented at this time, will continue to monitor. Recs: 1. Continue Regular diet as tolerated 2. Bowel care per rx 3. Weekly wts Addendum: 12/20/21 at [address] Amended: Links added.
[2021-12-20 07:30] VITALS: BP 151/53
[2021-12-20] MEDS: fluticasone nasal spray 16GM bottle NS SCH (07:33)
[2021-12-20] MEDS: tetrahydrozoline 0.05% 15ml ophthalmic drops EACHEYE SCH ×4 (07:34→20:18)
[2021-12-20] MEDS: LORazepam 1 MG tablet PO SCH ×2 (07:36→17:16)
[2021-12-20] MEDS: OLANZapine 5mg rapidly disint. tablet PO SCH ×3 (07:36→20:18)
[2021-12-20] MEDS: mupirocin 2% ointment 22GM TP SCH ×2 (07:36→20:18)
[2021-12-20] MEDS: cloNIDine 0.1 mg tablet PO SCH (07:36)
[2021-12-20] MEDS: levoTHYROXINE 25mcg tablet PO SCH (07:36)
[2021-12-20] MEDS: pantoprazole 40mg Tablet.DR PO SCH (07:36)
[2021-12-20] MEDS: atorvastatin 20mg tablet PO SCH (07:36)
[2021-12-20] MEDS: clotrimazole topical cream 15gm tube TP SCH ×2 (07:37→20:18)
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
[2021-12-20] MEDS: docusate sod 100mg capsule PO SCH ×2 (17:16→20:17)
[2021-12-20 19:40] VITALS: BP 128/77
[2021-12-20] MEDS: divalproex sod 250mg ER (24-hour) tablet PO SCH (20:16)
[2021-12-20] MEDS: traZODone 50mg tablet PO SCH (20:17)
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
[2021-12-21] MEDS: traZODone 50mg tablet PO SCH ×2 (01:16→20:12)
[2021-12-21] MEDS: levoTHYROXINE 25mcg tablet PO SCH (07:52)
[2021-12-21] MEDS: docusate sod 100mg capsule PO SCH ×2 (07:52→20:13)
[2021-12-21] MEDS: fluticasone nasal spray 16GM bottle NS SCH (07:52)
[2021-12-21] MEDS: tetrahydrozoline 0.05% 15ml ophthalmic drops EACHEYE SCH ×4 (07:52→20:13)
[2021-12-21] MEDS: pantoprazole 40mg Tablet.DR PO SCH (07:52)
[2021-12-21] MEDS: LORazepam 1 MG tablet PO SCH ×2 (07:53→16:26)
[2021-12-21] MEDS: atorvastatin 20mg tablet PO SCH (07:53)
[2021-12-21] MEDS: cloNIDine 0.1 mg tablet PO SCH (07:53)
[2021-12-21] MEDS: OLANZapine 5mg rapidly disint. tablet PO SCH ×3 (07:53→20:13)
[2021-12-21 08:00] VITALS: BP 133/85
[2021-12-21] MEDS: mupirocin 2% ointment 22GM TP SCH ×2 (08:00→20:13)
[2021-12-21] MEDS: clotrimazole topical cream 15gm tube TP SCH ×2 (08:00→20:13)
--- NOTE | 2021-12-21 10:26 | NUR ---
Pt attended group today. We talked about Self Nurturing about how to curate spaces of nurture/self-care for themselves. We then did Vision board visualizing safe/nurture places and words. Pt. engaged in the group as best she could. She appears to struggle to understand concepts at times and asks for help in understanding. She appears to enjoy socializing and playing games, she frequently asks if we can play [employer]. When she speaks it is often difficult to understand what she is saying as her speech is garbled. Her thoughts tend to veer toward circumstantial information about where she was living and how she did not feel safe there or how she got angry with someone there and threw something. Her mood is upbeat with a restricted affect. She reported that she feels safe at [facility] and that she feels this is a nurturing space for her. She was able to pick out pictures she like and explain why these were pictures that felt good to her. She also attended the Bingo group in the afternoon. Ely Hanna LCSW
[2021-12-21] MEDS: acetaminophen 325mg tablet PO PRN ×3 (11:07→20:44)
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
[2021-12-21] MEDS: divalproex sod 250mg ER (24-hour) tablet PO SCH (20:13)
[2021-12-21 20:55] VITALS: BP 123/65
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
[2021-12-22] MEDS: acetaminophen 325mg tablet PO PRN ×4 (03:30→20:13)
[2021-12-22] MEDS: OLANZapine 5mg rapidly disint. tablet PO SCH ×3 (07:34→20:07)
[2021-12-22] MEDS: LORazepam 1 MG tablet PO SCH ×2 (07:34→17:08)
[2021-12-22] MEDS: pantoprazole 40mg Tablet.DR PO SCH (07:34)
[2021-12-22] MEDS: cloNIDine 0.1 mg tablet PO SCH (07:34)
[2021-12-22] MEDS: fluticasone nasal spray 16GM bottle NS SCH (07:35)
[2021-12-22] MEDS: tetrahydrozoline 0.05% 15ml ophthalmic drops EACHEYE SCH ×4 (07:35→20:07)
[2021-12-22] MEDS: clotrimazole topical cream 15gm tube TP SCH ×2 (07:35→20:07)
[2021-12-22] MEDS: atorvastatin 20mg tablet PO SCH (07:35)
[2021-12-22] MEDS: mupirocin 2% ointment 22GM TP SCH ×2 (07:35→20:07)
[2021-12-22] MEDS: levoTHYROXINE 25mcg tablet PO SCH (07:35)
[2021-12-22] MEDS: docusate sod 100mg capsule PO SCH ×2 (07:35→20:06)
[2021-12-22 08:00] VITALS: BP 139/62
[2021-12-22] MEDS ORDERED: divalproex sod 250mg ER (24-hour) tablet PO SCH (08:30)
--- NOTE | 2021-12-22 09:57 | NUR ---
Pt. attended group today. Today with did an Art Expression group called Healing Symbols. The goal was to find strength in their own symbol which can feel empowering. We discussed if anything emerged in their art that surprised them and how they could incorporate their symbol into their day. Pt. engaged in group well, she enjoys doing artwork. She asked for help with her written portion which this Microbiology Technician helped her with. She shared it with the group appropriately.Her demeanor was calm and pleasant to work with. She appears to enjoy socializing and gets along with her peers well. Her thought content may contain some delusional content and her thought process is circumstantial. Ely Hanna, FINGER WAVER
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
[2021-12-22] MEDS: traZODone 50mg tablet PO SCH (20:06)
[2021-12-22] MEDS: divalproex sod 250mg ER (24-hour) tablet PO SCH (20:07)
[2021-12-22 20:10] VITALS: BP 130/61
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
[2021-12-23] MEDS: pantoprazole 40mg Tablet.DR PO SCH (07:21)
[2021-12-23] MEDS: levoTHYROXINE 25mcg tablet PO SCH (07:22)
[2021-12-23] MEDS: docusate sod 100mg capsule PO SCH ×2 (07:22→20:10)
[2021-12-23] MEDS: cloNIDine 0.1 mg tablet PO SCH (07:22)
[2021-12-23] MEDS: OLANZapine 5mg rapidly disint. tablet PO SCH ×3 (07:22→20:10)
[2021-12-23] MEDS: LORazepam 1 MG tablet PO SCH ×2 (07:22→16:46)
[2021-12-23] MEDS: divalproex sod 250mg ER (24-hour) tablet PO SCH ×2 (07:23→20:10)
[2021-12-23] MEDS: fluticasone nasal spray 16GM bottle NS SCH (07:34)
[2021-12-23] MEDS: tetrahydrozoline 0.05% 15ml ophthalmic drops EACHEYE SCH ×4 (07:34→20:10)
[2021-12-23 08:00] VITALS: BP 132/72
[2021-12-23] MEDS: clotrimazole topical cream 15gm tube TP SCH ×2 (08:00→20:10)
[2021-12-23] MEDS: mupirocin 2% ointment 22GM TP SCH ×2 (08:00→20:10)
[2021-12-23] MEDS: atorvastatin 20mg tablet PO SCH (08:00)
--- NOTE | 2021-12-23 11:15 | NUR ---
Pt. attended group today. The group today was about Anxiety, they were asked to identify the natural and silent triggers they have experienced. The second half of group was about what coping skills we can utilize when we are anxious. This Solution Design Engineer led a Visualization/Breathing technique called Ride the Panic Wave. Pt engaged minimally in the group today. At one point she fell asleep and when she was awake she was very lethargic. Her mood appeared a bit depressive with a restricted affect. Her demeanor was calm and compliant. Ely Hanna LCSW
[2021-12-23] MEDS: acetaminophen 325mg tablet PO PRN ×2 (11:33→21:37)
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
--- NOTE | 2021-12-23 18:08 | NUR ---
Pt. found to be yelling at cohort in the dining room during dinner. The argument appeared unprovoked and pt. was asked to move to another table, and she moved but then proceeded to all cohort a bitch. Pt. was asked to leave the dining room and eat in her room, and she went to her room with her tray then quickly returned to dining room and refused to return her room and eat.
[2021-12-23] MEDS: traZODone 50mg tablet PO SCH (20:10)
[2021-12-23 20:21] VITALS: BP 110/63
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
[2021-12-24] MEDS: acetaminophen 325mg tablet PO PRN (06:12)
[2021-12-24] MEDS: OLANZapine 5mg rapidly disint. tablet PO SCH ×3 (07:10→21:16)
[2021-12-24] MEDS: docusate sod 100mg capsule PO SCH ×2 (07:10→21:18)
[2021-12-24] MEDS: atorvastatin 20mg tablet PO SCH (07:10)
[2021-12-24] MEDS: levoTHYROXINE 25mcg tablet PO SCH (07:10)
[2021-12-24] MEDS: cloNIDine 0.1 mg tablet PO SCH (07:10)
[2021-12-24] MEDS: pantoprazole 40mg Tablet.DR PO SCH (07:10)
[2021-12-24] MEDS: LORazepam 1 MG tablet PO SCH ×2 (07:10→17:13)
[2021-12-24] MEDS: divalproex sod 250mg ER (24-hour) tablet PO SCH ×2 (07:10→21:17)
[2021-12-24] MEDS: fluticasone nasal spray 16GM bottle NS SCH (07:11)
[2021-12-24] MEDS: tetrahydrozoline 0.05% 15ml ophthalmic drops EACHEYE SCH ×4 (07:11→21:20)
[2021-12-24] MEDS: mupirocin 2% ointment 22GM TP SCH ×2 (07:19→20:00)
[2021-12-24 08:00] VITALS: BP 149/80
[2021-12-24] MEDS: clotrimazole topical cream 15gm tube TP SCH ×2 (08:00→20:00)
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
[2021-12-24] MEDS: ibuprofen tablet 400 MG TABLET PO SCH (17:13)
[2021-12-24 20:04] VITALS: BP 126/85
[2021-12-24] MEDS: traZODone 50mg tablet PO SCH (21:19)
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
[2021-12-25] MEDS: fluticasone nasal spray 16GM bottle NS SCH (06:58)
[2021-12-25] MEDS: tetrahydrozoline 0.05% 15ml ophthalmic drops EACHEYE SCH ×4 (06:58→20:48)
[2021-12-25] MEDS: clotrimazole topical cream 15gm tube TP SCH ×2 (06:59→20:48)
[2021-12-25] MEDS: mupirocin 2% ointment 22GM TP SCH ×2 (06:59→20:48)
[2021-12-25] MEDS: docusate sod 100mg capsule PO SCH ×2 (07:00→20:48)
[2021-12-25] MEDS: divalproex sod 250mg ER (24-hour) tablet PO SCH ×2 (07:00→20:47)
[2021-12-25] MEDS: ibuprofen tablet 400 MG TABLET PO SCH ×3 (07:00→17:26)
[2021-12-25] MEDS: LORazepam 1 MG tablet PO SCH ×2 (07:00→17:26)
[2021-12-25] MEDS: pantoprazole 40mg Tablet.DR PO SCH (07:00)
[2021-12-25] MEDS: levoTHYROXINE 25mcg tablet PO SCH (07:00)
[2021-12-25] MEDS: cloNIDine 0.1 mg tablet PO SCH (07:00)
[2021-12-25] MEDS: OLANZapine 5mg rapidly disint. tablet PO SCH ×3 (07:00→20:47)
[2021-12-25] MEDS: atorvastatin 20mg tablet PO SCH (07:00)
[2021-12-25] MEDS: acetaminophen 325mg tablet PO PRN ×2 (07:43→15:51)
[2021-12-25 08:00] VITALS: BP 128/72
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
[2021-12-25 19:33] VITALS: BP 146/70
[2021-12-25] MEDS: traZODone 50mg tablet PO SCH (20:48)
[2021-12-26] MEDS: acetaminophen 325mg tablet PO PRN ×2 (01:55→23:01)
[2021-12-26] MEDS: traZODone 50mg tablet PO SCH ×2 (01:55→20:28)
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
[2021-12-26 08:00] VITALS: BP 130/98
[2021-12-26] MEDS: atorvastatin 20mg tablet PO SCH (08:11)
[2021-12-26] MEDS: docusate sod 100mg capsule PO SCH ×2 (08:11→20:27)
[2021-12-26] MEDS: OLANZapine 5mg rapidly disint. tablet PO SCH ×3 (08:11→20:27)
[2021-12-26] MEDS: ibuprofen tablet 400 MG TABLET PO SCH ×3 (08:11→17:00)
[2021-12-26] MEDS: divalproex sod 250mg ER (24-hour) tablet PO SCH ×2 (08:11→20:28)
[2021-12-26] MEDS: pantoprazole 40mg Tablet.DR PO SCH (08:11)
[2021-12-26] MEDS: levoTHYROXINE 25mcg tablet PO SCH (08:11)
[2021-12-26] MEDS: cloNIDine 0.1 mg tablet PO SCH (08:11)
[2021-12-26] MEDS: LORazepam 1 MG tablet PO SCH ×2 (08:11→17:00)
[2021-12-26] MEDS: fluticasone nasal spray 16GM bottle NS SCH (08:14)
[2021-12-26] MEDS: clotrimazole topical cream 15gm tube TP SCH ×2 (08:14→20:27)
[2021-12-26] MEDS: mupirocin 2% ointment 22GM TP SCH ×2 (08:14→20:27)
[2021-12-26] MEDS: tetrahydrozoline 0.05% 15ml ophthalmic drops EACHEYE SCH ×4 (08:14→20:28)
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
[2021-12-26 19:04] VITALS: BP 114/58
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
[2021-12-27] MEDS ORDERED: OLANZapine 5mg rapidly disint. tablet PO ONE (06:00)
--- NOTE | 2021-12-27 07:04 | NUR ---
Reassessment: Pt currently on Regular diet w/ mostly 100% intake of meals meeting needs at this time. LBM 12/26 receiving routine colace. No nutrition intervention implemented at this time, will continue to monitor. Recs: 1. Continue Regular diet as tolerated 2. Bowel care per rx 3. Weekly wts Addendum: 12/27/21 at [address] Amended: Links added.
[2021-12-27] MEDS: tetrahydrozoline 0.05% 15ml ophthalmic drops EACHEYE SCH ×4 (07:15→20:07)
[2021-12-27] MEDS: fluticasone nasal spray 16GM bottle NS SCH (07:15)
[2021-12-27] MEDS: OLANZapine 5mg rapidly disint. tablet PO SCH ×3 (07:15→20:06)
[2021-12-27] MEDS: pantoprazole 40mg Tablet.DR PO SCH (07:15)
[2021-12-27] MEDS: docusate sod 100mg capsule PO SCH ×2 (07:16→20:06)
[2021-12-27] MEDS: mupirocin 2% ointment 22GM TP SCH ×2 (07:16→20:08)
[2021-12-27] MEDS: levoTHYROXINE 25mcg tablet PO SCH (07:16)
[2021-12-27] MEDS: LORazepam 1 MG tablet PO SCH ×2 (07:16→16:59)
[2021-12-27] MEDS: divalproex sod 250mg ER (24-hour) tablet PO SCH ×2 (07:16→20:06)
[2021-12-27] MEDS: ibuprofen tablet 400 MG TABLET PO SCH ×3 (07:16→16:58)
[2021-12-27] MEDS: clotrimazole topical cream 15gm tube TP SCH ×2 (07:16→20:07)
[2021-12-27] MEDS: atorvastatin 20mg tablet PO SCH (07:16)
[2021-12-27] MEDS: cloNIDine 0.1 mg tablet PO SCH ×2 (07:16→20:05)
[2021-12-27 08:00] VITALS: BP 144/91
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
[2021-12-27 19:13] VITALS: BP 134/68
[2021-12-27] MEDS: traZODone 50mg tablet PO SCH (20:06)
[2021-12-28] MEDS: traZODone 50mg tablet PO SCH ×3 (00:45→21:30)
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
[2021-12-28] MEDS: atorvastatin 20mg tablet PO SCH (07:24)
[2021-12-28] MEDS: LORazepam 1 MG tablet PO SCH ×2 (07:24→17:24)
[2021-12-28] MEDS: docusate sod 100mg capsule PO SCH ×2 (07:24→20:19)
[2021-12-28] MEDS: cloNIDine 0.1 mg tablet PO SCH ×2 (07:25→20:19)
[2021-12-28] MEDS: levoTHYROXINE 25mcg tablet PO SCH (07:25)
[2021-12-28] MEDS: divalproex sod 250mg ER (24-hour) tablet PO SCH ×2 (07:25→20:19)
[2021-12-28] MEDS: OLANZapine 5mg rapidly disint. tablet PO SCH ×3 (07:25→20:18)
[2021-12-28] MEDS: fluticasone nasal spray 16GM bottle NS SCH (07:25)
[2021-12-28] MEDS: ibuprofen tablet 400 MG TABLET PO SCH ×3 (07:25→17:24)
[2021-12-28] MEDS: tetrahydrozoline 0.05% 15ml ophthalmic drops EACHEYE SCH ×4 (07:26→21:28)
[2021-12-28] MEDS: mupirocin 2% ointment 22GM TP SCH ×2 (07:27→20:00)
[2021-12-28] MEDS: clotrimazole topical cream 15gm tube TP SCH ×2 (07:27→20:00)
[2021-12-28] MEDS: pantoprazole 40mg Tablet.DR PO SCH (07:33)
[2021-12-28 07:55] VITALS: BP 151/76
--- NOTE | 2021-12-28 12:14 | NUR ---
CM Presenting Issues: Pt lost housing/placement, [facility] is working to find alternate placement for pt. Pt exhibits aggressive bxs towards others and requires frequent re-direction but does not appears to be able to self maintain w/o re-directions. Interventions: Clinician had t/c w/Neida Diana, pt's [facility] Market Superintendent, left vm request rt t/c re pt's dcp. Plan: Clinician will continue to engage [facility] in dcp activities. Alva Tavera LCSW Addendum: 12/28/21 at 1218 by Alva Tavera SS Amended: Links added.
[2021-12-28] MEDS: acetaminophen 325mg tablet PO PRN (15:43)
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
[2021-12-28 19:54] VITALS: BP 110/65
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
[2021-12-29] MEDS: acetaminophen 325mg tablet PO PRN ×2 (01:14→08:58)
[2021-12-29] MEDS: pantoprazole 40mg Tablet.DR PO SCH (07:53)
[2021-12-29] MEDS: LORazepam 1 MG tablet PO SCH ×2 (07:53→17:14)
[2021-12-29] MEDS: cloNIDine 0.1 mg tablet PO SCH ×2 (07:53→20:13)
[2021-12-29] MEDS: docusate sod 100mg capsule PO SCH ×2 (07:53→20:13)
[2021-12-29] MEDS: OLANZapine 5mg rapidly disint. tablet PO SCH ×3 (07:53→20:13)
[2021-12-29] MEDS: divalproex sod 250mg ER (24-hour) tablet PO SCH ×2 (07:53→20:13)
[2021-12-29] MEDS: atorvastatin 20mg tablet PO SCH (07:53)
[2021-12-29] MEDS: levoTHYROXINE 25mcg tablet PO SCH (07:53)
[2021-12-29] MEDS: ibuprofen tablet 400 MG TABLET PO SCH ×3 (07:53→17:14)
[2021-12-29] MEDS: fluticasone nasal spray 16GM bottle NS SCH (07:54)
[2021-12-29] MEDS: mupirocin 2% ointment 22GM TP SCH ×2 (07:55→20:00)
[2021-12-29 08:00] VITALS: BP 133/64
[2021-12-29] MEDS: clotrimazole topical cream 15gm tube TP SCH ×2 (08:01→20:00)
[2021-12-29] MEDS: tetrahydrozoline 0.05% 15ml ophthalmic drops EACHEYE SCH ×4 (08:01→21:32)
--- NOTE | 2021-12-29 08:37 | NUR ---
We did an Art Expression called Feeling Opposites to help focus and work on identifying current emotional stated of being and to identify what the opposite emotion would be. It also helps express and release these contrasting emotions for the purpose of balance, regulation and thought re-structuring. Pt. engaged but at times seemed confused regarding the instructions and would need some extra help to understand what she needed to do. She would often need redirection as she can interrupt others when they are talking to get her needs met. She was amenable to redirection. Her two feeling stated were, "Appreciative" and "Grumpy". She shaded in each emotion with a color and shared why she chose that color. She did not engage in the written part and by the end of group was falling asleep. Her demeanor was calm and compliant. Ely Hanna LCSW
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
[2021-12-29 19:28] VITALS: BP 133/77
[2021-12-29] MEDS: traZODone 50mg tablet PO SCH (20:12)
[2021-12-29] MEDS: mag hydrox/Alum hydrox/simeth 30ml oral suspension PO PRN (22:39)
[2021-12-30] MEDS: traZODone 50mg tablet PO SCH ×2 (00:24→20:12)
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
[2021-12-30] MEDS: levoTHYROXINE 25mcg tablet PO SCH (07:43)
[2021-12-30] MEDS: LORazepam 1 MG tablet PO SCH ×2 (07:43→17:41)
[2021-12-30] MEDS: pantoprazole 40mg Tablet.DR PO SCH (07:43)
[2021-12-30] MEDS: cloNIDine 0.1 mg tablet PO SCH ×2 (07:43→20:11)
[2021-12-30] MEDS: docusate sod 100mg capsule PO SCH ×2 (07:44→20:11)
[2021-12-30] MEDS: atorvastatin 20mg tablet PO SCH (07:44)
[2021-12-30] MEDS: OLANZapine 5mg rapidly disint. tablet PO SCH ×3 (07:44→20:12)
[2021-12-30] MEDS: divalproex sod 250mg ER (24-hour) tablet PO SCH ×2 (07:44→20:12)
[2021-12-30] MEDS: mupirocin 2% ointment 22GM TP SCH ×2 (07:54→20:12)
[2021-12-30] MEDS: fluticasone nasal spray 16GM bottle NS SCH (07:54)
[2021-12-30] MEDS: tetrahydrozoline 0.05% 15ml ophthalmic drops EACHEYE SCH ×4 (07:54→20:13)
[2021-12-30] MEDS: clotrimazole topical cream 15gm tube TP SCH ×2 (07:54→20:12)
[2021-12-30 08:00] VITALS: BP 138/83
[2021-12-30] MEDS: ibuprofen tablet 400 MG TABLET PO SCH ×3 (08:55→17:41)
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
[2021-12-30] MEDS: acetaminophen 325mg tablet PO PRN (19:01)
[2021-12-30 19:54] VITALS: BP 125/86
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
[2021-12-31 07:17] VITALS: BP 154/68
[2021-12-31 07:25] VITALS: BP 154/68
[2021-12-31] MEDS: LORazepam 1 MG tablet PO SCH ×2 (07:45→17:17)
[2021-12-31] MEDS: ibuprofen tablet 400 MG TABLET PO SCH ×3 (07:45→17:30)
[2021-12-31] MEDS: atorvastatin 20mg tablet PO SCH (07:46)
[2021-12-31] MEDS: OLANZapine 5mg rapidly disint. tablet PO SCH ×3 (07:46→20:12)
[2021-12-31] MEDS: levoTHYROXINE 25mcg tablet PO SCH (07:46)
[2021-12-31] MEDS: docusate sod 100mg capsule PO SCH ×2 (07:47→20:12)
[2021-12-31] MEDS: pantoprazole 40mg Tablet.DR PO SCH (07:47)
[2021-12-31] MEDS: cloNIDine 0.1 mg tablet PO SCH ×2 (07:47→20:12)
[2021-12-31] MEDS: divalproex sod 250mg ER (24-hour) tablet PO SCH ×2 (07:47→20:12)
[2021-12-31] MEDS: fluticasone nasal spray 16GM bottle NS SCH (07:48)
[2021-12-31] MEDS: clotrimazole topical cream 15gm tube TP SCH ×2 (07:48→20:00)
[2021-12-31] MEDS: mupirocin 2% ointment 22GM TP SCH ×2 (07:48→20:00)
[2021-12-31] MEDS: tetrahydrozoline 0.05% 15ml ophthalmic drops EACHEYE SCH ×4 (07:48→20:19)
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
[2021-12-31 20:00] VITALS: BP 109/66
[2021-12-31] MEDS: traZODone 50mg tablet PO SCH (20:12)
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
[2022-01-01 07:29] VITALS: BP 156/89
[2022-01-01] MEDS: ibuprofen tablet 400 MG TABLET PO SCH ×4 (07:35→17:21)
[2022-01-01] MEDS: LORazepam 1 MG tablet PO SCH ×2 (07:35→17:21)
[2022-01-01] MEDS: pantoprazole 40mg Tablet.DR PO SCH (07:36)
[2022-01-01] MEDS: OLANZapine 5mg rapidly disint. tablet PO SCH ×4 (07:36→20:13)
[2022-01-01] MEDS: cloNIDine 0.1 mg tablet PO SCH ×2 (07:36→20:12)
[2022-01-01] MEDS: atorvastatin 20mg tablet PO SCH (07:36)
[2022-01-01] MEDS: divalproex sod 250mg ER (24-hour) tablet PO SCH ×2 (07:36→20:13)
[2022-01-01] MEDS: levoTHYROXINE 25mcg tablet PO SCH (07:36)
[2022-01-01] MEDS: docusate sod 100mg capsule PO SCH ×2 (07:36→20:13)
[2022-01-01] MEDS: fluticasone nasal spray 16GM bottle NS SCH (07:47)
[2022-01-01] MEDS: tetrahydrozoline 0.05% 15ml ophthalmic drops EACHEYE SCH ×4 (07:47→20:42)
[2022-01-01] MEDS: mupirocin 2% ointment 22GM TP SCH ×2 (07:47→20:42)
[2022-01-01] MEDS: clotrimazole topical cream 15gm tube TP SCH ×2 (07:47→20:42)
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
[2022-01-01 20:00] VITALS: BP 117/79
[2022-01-01] MEDS: traZODone 50mg tablet PO SCH (20:12)
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
[2022-01-02 07:24] VITALS: BP 170/84
[2022-01-02] MEDS: levoTHYROXINE 25mcg tablet PO SCH (07:48)
[2022-01-02] MEDS: pantoprazole 40mg Tablet.DR PO SCH (07:48)
[2022-01-02] MEDS: tetrahydrozoline 0.05% 15ml ophthalmic drops EACHEYE SCH ×4 (07:48→20:29)
[2022-01-02] MEDS: fluticasone nasal spray 16GM bottle NS SCH (07:48)
[2022-01-02] MEDS: LORazepam 1 MG tablet PO SCH ×2 (07:49→13:42)
[2022-01-02] MEDS: ibuprofen tablet 400 MG TABLET PO SCH ×4 (07:49→17:30)
[2022-01-02] MEDS: cloNIDine 0.1 mg tablet PO SCH ×2 (07:49→20:29)
[2022-01-02] MEDS: atorvastatin 20mg tablet PO SCH (07:49)
[2022-01-02] MEDS: OLANZapine 5mg rapidly disint. tablet PO SCH ×3 (07:49→20:29)
[2022-01-02] MEDS: divalproex sod 250mg ER (24-hour) tablet PO SCH ×2 (07:49→20:28)
[2022-01-02] MEDS: docusate sod 100mg capsule PO SCH ×2 (07:49→20:28)
[2022-01-02] MEDS: clotrimazole topical cream 15gm tube TP SCH ×3 (07:49→20:29)
[2022-01-02] MEDS: mupirocin 2% ointment 22GM TP SCH ×2 (08:00→20:29)
--- NOTE | 2022-01-02 10:01 | NUR ---
Paula in community room coloring
--- NOTE | 2022-01-02 13:31 | NUR ---
Sitting in hallway in a chair coloring in her coloring book
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
[2022-01-02 20:00] VITALS: BP 131/77
[2022-01-02] MEDS: traZODone 50mg tablet PO SCH (20:52)
[2022-01-03] MEDS: traZODone 50mg tablet PO SCH ×2 (00:04→20:25)
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
--- NOTE | 2022-01-03 03:11 | NUR ---
Patient threw water pitcher out of room and on floor. When asked why pt responded, "I don't know?" Patient helped clean up water on floor and went to bed.
[2022-01-03] MEDS: tetrahydrozoline 0.05% 15ml ophthalmic drops EACHEYE SCH ×4 (07:57→21:40)
[2022-01-03 07:58] VITALS: BP 129/61
[2022-01-03] MEDS: fluticasone nasal spray 16GM bottle NS SCH (07:58)
[2022-01-03] MEDS: LORazepam 1 MG tablet PO SCH ×2 (07:58→17:30)
[2022-01-03] MEDS: atorvastatin 20mg tablet PO SCH (07:59)
[2022-01-03] MEDS: pantoprazole 40mg Tablet.DR PO SCH (07:59)
[2022-01-03] MEDS: cloNIDine 0.1 mg tablet PO SCH ×2 (07:59→20:00)
[2022-01-03] MEDS: docusate sod 100mg capsule PO SCH ×2 (07:59→20:25)
[2022-01-03] MEDS: levoTHYROXINE 25mcg tablet PO SCH (07:59)
[2022-01-03] MEDS: sertraline 25mg tablet PO SCH (07:59)
[2022-01-03] MEDS: clotrimazole topical cream 15gm tube TP SCH ×2 (08:00→20:00)
[2022-01-03] MEDS: OLANZapine 5mg rapidly disint. tablet PO SCH ×3 (08:00→20:25)
[2022-01-03] MEDS: mupirocin 2% ointment 22GM TP SCH ×2 (08:01→20:00)
[2022-01-03] MEDS: divalproex sod 250mg ER (24-hour) tablet PO SCH ×2 (08:02→20:24)
[2022-01-03] MEDS: ibuprofen tablet 400 MG TABLET PO SCH ×3 (08:02→17:30)
--- NOTE | 2022-01-03 10:51 | NUR ---
Reassessment: Pt currently on Regular diet w/ mostly 100% intake of meals meeting needs at this time. LBM 01/01 receiving routine colace. No nutrition intervention implemented at this time, will continue to monitor. Recs: 1. Continue Regular diet as tolerated 2. Bowel care per rx 3. Weekly wts Addendum: 01/03/22 at [address] Amended: Links added.
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
[2022-01-03 20:44] VITALS: BP 116/59
[2022-01-04] MEDS: traZODone 50mg tablet PO SCH ×2 (01:25→20:43)
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
[2022-01-04 08:00] VITALS: BP 137/86
[2022-01-04] MEDS: tetrahydrozoline 0.05% 15ml ophthalmic drops EACHEYE SCH ×4 (08:04→20:59)
[2022-01-04] MEDS: ibuprofen tablet 400 MG TABLET PO SCH ×3 (08:05→17:45)
[2022-01-04] MEDS: levoTHYROXINE 25mcg tablet PO SCH (08:05)
[2022-01-04] MEDS: pantoprazole 40mg Tablet.DR PO SCH (08:05)
[2022-01-04] MEDS: sertraline 25mg tablet PO SCH (08:05)
[2022-01-04] MEDS: docusate sod 100mg capsule PO SCH ×2 (08:05→20:43)
[2022-01-04] MEDS: fluticasone nasal spray 16GM bottle NS SCH (08:05)
[2022-01-04] MEDS: cloNIDine 0.1 mg tablet PO SCH ×2 (08:05→20:43)
[2022-01-04] MEDS: mupirocin 2% ointment 22GM TP SCH ×2 (08:06→20:59)
[2022-01-04] MEDS: atorvastatin 20mg tablet PO SCH (08:06)
[2022-01-04] MEDS: OLANZapine 5mg rapidly disint. tablet PO SCH ×3 (08:06→20:43)
[2022-01-04] MEDS: divalproex sod 250mg ER (24-hour) tablet PO SCH ×2 (08:06→20:44)
[2022-01-04] MEDS: clotrimazole topical cream 15gm tube TP SCH ×2 (08:06→20:59)
[2022-01-04] MEDS: LORazepam 1 MG tablet PO SCH ×2 (08:06→17:44)
--- NOTE | 2022-01-04 10:55 | NUR ---
CM Clinician contacted [facility], left for pt's Auto Air Conditioning Installer Neida requesting placement update. Alva Tavera CAR PAINTER Addendum: 01/04/22 at 1056 by Alva Tavera SS Amended: Links added.
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
[2022-01-04 19:25] VITALS: BP 131/64
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
[2022-01-05 07:26] VITALS: BP 115/68
[2022-01-05] MEDS: cloNIDine 0.1 mg tablet PO SCH ×2 (07:32→20:13)
[2022-01-05] MEDS: pantoprazole 40mg Tablet.DR PO SCH (07:32)
[2022-01-05] MEDS: docusate sod 100mg capsule PO SCH ×2 (07:32→20:14)
[2022-01-05] MEDS: OLANZapine 5mg rapidly disint. tablet PO SCH ×3 (07:32→20:14)
[2022-01-05] MEDS: sertraline 25mg tablet PO SCH (07:32)
[2022-01-05] MEDS: atorvastatin 20mg tablet PO SCH (07:32)
[2022-01-05] MEDS: divalproex sod 250mg ER (24-hour) tablet PO SCH ×2 (07:32→20:13)
[2022-01-05] MEDS: ibuprofen tablet 400 MG TABLET PO SCH ×3 (07:32→16:56)
[2022-01-05] MEDS: mupirocin 2% ointment 22GM TP SCH ×2 (08:00→20:00)
[2022-01-05] MEDS: LORazepam 1 MG tablet PO SCH ×2 (08:47→16:56)
[2022-01-05] MEDS: levoTHYROXINE 25mcg tablet PO SCH (08:47)
[2022-01-05] MEDS: fluticasone nasal spray 16GM bottle NS SCH (08:48)
[2022-01-05] MEDS: tetrahydrozoline 0.05% 15ml ophthalmic drops EACHEYE SCH ×4 (08:53→21:32)
[2022-01-05] MEDS: clotrimazole topical cream 15gm tube TP SCH ×2 (08:54→20:00)
--- NOTE | 2022-01-05 12:10 | NUR ---
CM-Linkages Presenting Issues: Clinician received request from [facility] for packet for placement eval purposes. Interventions: Clinician had t/c with Neryresearch program coordinator @ [facility] [phone] and clarified records being requested. Per t/c clinician faxed H&P, notes, 7-days RN notes, current labs & meds. Plan: Clinician will continue to engage [facility] in dcp activities & monitor placement activities. Alva Tavera LCSW Addendum: 01/05/22 at 1231 by Alva Tavera SS Amended: Links added.
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
[2022-01-05 18:23] LABS: CLARITY,URINE CLEAR (Clear); COLOR,URINE YELLOW (Yellow); GLUCOSE, URINE NEGATIVE (Neg); KETONES,URINE NEGATIVE (Neg); LEUKOCYTE ESTERASE ,URINE MODERATE (Neg); NITRITES, URINE NEGATIVE (Neg); OCCULT BLOOD,URINE NEGATIVE (Neg); PH,URINE 6.5 (4.8-8.0); PROTEIN,URINE NEGATIVE (Neg); UROBILINOGEN,URINE 0.2 E.U/dL (0.2-1.0)
[2022-01-05 18:35] LABS: UA COLLECTION TYPE NON-SPECIFIED
[2022-01-05 18:39] LABS: BACTERIA,URINE FEW /HPF (Neg); RBC,URINE 0-2 /HPF (0-2); SQUAMOUS EPITHELIAL CELL,UR FEW /LPF (FEW)
[2022-01-05 18:40] LABS: AMORPHOUS PHOSPHATES 3+; MUCUS STRANDS FEW /LPF (Neg)
[2022-01-05 20:00] VITALS: BP 151/86
[2022-01-05] MEDS: traZODone 50mg tablet PO SCH ×2 (20:14→22:24)
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
[2022-01-06] MEDS: cloNIDine 0.1 mg tablet PO SCH ×2 (07:48→19:22)
[2022-01-06] MEDS: atorvastatin 20mg tablet PO SCH (07:48)
[2022-01-06] MEDS: divalproex sod 250mg ER (24-hour) tablet PO SCH ×2 (07:48→19:21)
[2022-01-06] MEDS: pantoprazole 40mg Tablet.DR PO SCH (07:48)
[2022-01-06] MEDS: docusate sod 100mg capsule PO SCH ×2 (07:48→19:21)
[2022-01-06] MEDS: sertraline 25mg tablet PO SCH (07:48)
[2022-01-06] MEDS: ibuprofen tablet 400 MG TABLET PO SCH ×3 (07:48→17:35)
[2022-01-06] MEDS: mupirocin 2% ointment 22GM TP SCH ×2 (07:49→20:00)
[2022-01-06] MEDS: OLANZapine 5mg rapidly disint. tablet PO SCH ×3 (07:49→19:22)
[2022-01-06] MEDS: clotrimazole topical cream 15gm tube TP SCH ×2 (07:49→20:00)
[2022-01-06] MEDS: tetrahydrozoline 0.05% 15ml ophthalmic drops EACHEYE SCH ×4 (07:50→21:00)
[2022-01-06] MEDS: fluticasone nasal spray 16GM bottle NS SCH (07:50)
[2022-01-06] MEDS: LORazepam 1 MG tablet PO SCH ×2 (07:51→17:35)
[2022-01-06 08:00] VITALS: BP 157/87
[2022-01-06] MEDS: levoTHYROXINE 25mcg tablet PO SCH (09:34)
--- NOTE | 2022-01-06 10:35 | NUR ---
Reading Efficiency Course Director again attempted to engage pt in completing her psychosocial assessment interview however, pt again declined to participate. Clinician reviewed chart and noted pt's also been declining care from care team and declining medications at this time. This is similar to pt's last episode where pt took all of the 5270 time to stabilize. Clinician consulted w/attending physician re need for 5250 & possible a Riese petition w/re to medication treatment. Per consultation, attending physician plans to provide a 5250 & a Riese. Clinician will continue to engage pt and provide support to facilitate stabilization. Potential D/C: [facility], pt had utilized [facility] following discharge from [facility] last year. Alva Tavera LCSW Addendum: 01/07/22 at 0741 by Alva Tavera SS Amended: Links added.
--- NOTE | 2022-01-06 11:30 | NUR ---
CM-Pre-DCP CM: [facility]. Received t/c from pt's [facility] Drophammer Operator-Neida Diana informed of Zoom Star Assessment scheduled for next Thursday 01/11 @ 3:15PM. Interventions: Clinician sent updated notes & labs to [facility] I informed care team of pt's zoom appointment for her STAR assessment w/[facility] on 01/11 @ 3:15PM. Plan: Clinician will continue to monitor. Alva Tavera LCSW Addendum: 01/06/22 at 1133 by Alva Tavera SS Amended: Links added.
--- NOTE | 2022-01-06 12:26 | NUR ---
CM: Linkages Presenting Issues: Triage team @ [facility] requesting updated labs, MRSA & COVID test results for placement eval. Interventions: Clinician sent requested records via encrypted e-mail attachment & requested for verification of placement offer. Plan: Clinician will continue to monitor and engage [facility] in dcp/placement activities. Alva Tavera LCSW Addendum: 01/06/22 at 1306 by Alva Tavera SS Amended: Links added.
[2022-01-06] MEDS: LORazepam 1 MG tablet PO PRN (15:20)
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
[2022-01-06] MEDS ORDERED: LORazepam 2 mg/ml vial IM ONE (19:05)
[2022-01-06] MEDS: lactobacillus rhamnosus 10,000 MMU CELLS/CAPSULE PO SCH (19:20)
[2022-01-06] MEDS: traZODone 50mg tablet PO SCH (19:20)
[2022-01-06 19:51] VITALS: BP 175/82
[2022-01-06] MEDS: ciprofloxacin 250mg tablet PO SCH (22:00)
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
[2022-01-07] MEDS: LORazepam 1 MG tablet PO PRN (05:39)
--- NOTE | 2022-01-07 07:22 | NUR ---
CM-Pre-dcp Presenting Issues: Received e-mail from [facility], per e-mail they are reviewing pt's packet for placement consideration, no placement decisions have been made yet. Plan: Clinician will continue to monitor, engage [facility] in dcp/placement activities, and f/u with facilities reviewing pt for placement considerations. Alva Tavera HARVESTING [employer]OR Addendum: 01/07/22 at 32 by Alva Tavera SS Amended: Links added.
[2022-01-07] MEDS: pantoprazole 40mg Tablet.DR PO SCH (07:50)
[2022-01-07] MEDS: atorvastatin 20mg tablet PO SCH (07:50)
[2022-01-07] MEDS: divalproex sod 250mg ER (24-hour) tablet PO SCH ×2 (07:50→21:26)
[2022-01-07] MEDS: OLANZapine 5mg rapidly disint. tablet PO SCH ×3 (07:50→21:31)
[2022-01-07] MEDS: cloNIDine 0.1 mg tablet PO SCH ×2 (07:50→21:26)
[2022-01-07] MEDS: docusate sod 100mg capsule PO SCH ×2 (07:50→21:24)
[2022-01-07] MEDS: ibuprofen tablet 400 MG TABLET PO SCH ×3 (07:51→21:32)
[2022-01-07] MEDS: sertraline 25mg tablet PO SCH (07:51)
[2022-01-07] MEDS: levoTHYROXINE 25mcg tablet PO SCH (07:57)
[2022-01-07] MEDS: LORazepam 1 MG tablet PO SCH ×2 (07:57→21:30)
[2022-01-07] MEDS: lactobacillus rhamnosus 10,000 MMU CELLS/CAPSULE PO SCH ×2 (07:57→21:24)
[2022-01-07] MEDS: clotrimazole topical cream 15gm tube TP SCH ×2 (08:02→20:00)
[2022-01-07] MEDS: mupirocin 2% ointment 22GM TP SCH ×2 (08:02→21:25)
[2022-01-07] MEDS: tetrahydrozoline 0.05% 15ml ophthalmic drops EACHEYE SCH ×3 (08:02→21:00)
[2022-01-07] MEDS: fluticasone nasal spray 16GM bottle NS SCH (08:02)
[2022-01-07 08:53] VITALS: BP 116/57
[2022-01-07] MEDS: ciprofloxacin 250mg tablet PO SCH ×2 (10:08→21:26)
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
[2022-01-07] MEDS: traZODone 50mg tablet PO SCH (21:26)
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
[2022-01-08 07:12] VITALS: BP 126/78
[2022-01-08] MEDS: sertraline 25mg tablet PO SCH (07:23)
[2022-01-08] MEDS: levoTHYROXINE 25mcg tablet PO SCH (07:23)
[2022-01-08] MEDS: OLANZapine 5mg rapidly disint. tablet PO SCH ×3 (07:23→20:54)
[2022-01-08] MEDS: LORazepam 1 MG tablet PO SCH ×2 (07:23→17:42)
[2022-01-08] MEDS: docusate sod 100mg capsule PO SCH ×2 (07:24→20:53)
[2022-01-08] MEDS: atorvastatin 20mg tablet PO SCH (07:24)
[2022-01-08] MEDS: lactobacillus rhamnosus 10,000 MMU CELLS/CAPSULE PO SCH ×2 (07:24→20:53)
[2022-01-08] MEDS: pantoprazole 40mg Tablet.DR PO SCH (07:25)
[2022-01-08] MEDS: fluticasone nasal spray 16GM bottle NS SCH (07:25)
[2022-01-08] MEDS: mupirocin 2% ointment 22GM TP SCH ×2 (07:25→20:55)
[2022-01-08] MEDS: cloNIDine 0.1 mg tablet PO SCH ×2 (07:25→20:52)
[2022-01-08] MEDS: clotrimazole topical cream 15gm tube TP SCH ×2 (07:25→20:54)
[2022-01-08] MEDS: tetrahydrozoline 0.05% 15ml ophthalmic drops EACHEYE SCH ×4 (07:30→20:55)
[2022-01-08] MEDS: divalproex sod 250mg ER (24-hour) tablet PO SCH ×2 (07:32→20:53)
[2022-01-08] MEDS: ibuprofen tablet 400 MG TABLET PO SCH ×3 (07:32→17:42)
--- NOTE | 2022-01-08 08:55 | NUR ---
Inpatient Seclusion: Pt. was sitting up coloring in the Group Room when she was observed by staff to throw pens at another patient unprovoked, and also became verbally aggressive making threatening comments towards others. Pt's behaviors were endorsed to doctor Munroe, and an order for seclusion was received. Pt. had already exhibited previous episodes of these behaviors earlier during the shift, and had been provided education by staff that she would need to go into time-out/seclusion if it happened again. Pt. was able to be easily directed into the seclusion room where she was closely monitored by staff. When questioned regarding her behavior, pt. stated in what appeared to be denial, "I didn't throw it at anyone, I just threw it on the floor." Pt. was provided additional education regarding the fact that throwing objects and yelling out at others is unacceptable, and she reported understanding. Pt. lay down and slept during her 15 minutes in time out, and was then escorted back to her room, will continue to monitor closely.
[2022-01-08 09:25] VITALS: BP 102/50
[2022-01-08] MEDS: ciprofloxacin 250mg tablet PO SCH ×2 (10:52→21:02)
--- NOTE | 2022-01-08 11:50 | NUR ---
Behavior: Pt. was laying in bed drinking coffee when she was asked to come out into the Group Room by a peer who was sitting by her door waiting to speak to the MD. This peer kept pressuring pt. to come out of her room to the point in which it was necessary for staff intervene. Pt. was standing in her doorway holding her cup of coffee when she proceeded to throw it on a staff member. This was endorsed to COURTNEY Trujillo and some other items that pt. had previously thrown were placed in her locker where they will be stored and she will have access to through staff.
[2022-01-08] MEDS: LORazepam 1 MG tablet PO PRN (13:11)
--- NOTE | 2022-01-08 13:11 | NUR ---
PRNs Administered: Ativan 1mg Interventions Offered: Pt. reported feeling agitated, but was unable to articulate why when questioned. She came out of her room and apologized to several staff members and then requested PRN Ativan. Pt. was provided a quiet environment free from overstimulation and PRN medication was administered. Response to Medication: Pt. thanked this journalists and other writers for the medication
--- NOTE | 2022-01-08 13:25 | NUR ---
Behavior requiring seclusion: Pt. was eating lunch in her room when she suddenly became increasingly agitated despite being previously administered PRN Ativan. She began cursing and threatening staff and then proceeded to throw her lunch tray out into the hallway. This behavior was endorsed to Dr. Munroe who gave orders for seclusion, and pt. was again directed back into the seclusion room. Pt. was easily directed and is laying in the bed sleeping at this time, will continue with increased observation.
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
[2022-01-08 15:10] VITALS: BP 155/70
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
--- NOTE | 2022-01-08 19:00 | NUR ---
AGGRESSION: Patient getting aggressive. She is throwing items on the floor and furniture has been removed.
[2022-01-08] MEDS: traZODone 50mg tablet PO SCH (20:54)
--- NOTE | 2022-01-09 02:00 | NUR ---
Patient not following commands. Requesting to go out of the room. Placed in a hold room for observation. Patient banging her head on the wall and door. Ativan given for agitation.
[2022-01-09] MEDS: acetaminophen 325mg tablet PO PRN (02:12)
[2022-01-09] MEDS: LORazepam 1 MG tablet PO PRN (04:34)
[2022-01-09] MEDS ORDERED: diphenhydrAMINE 25mg capsule PO ONE (05:20)
[2022-01-09] MEDS ORDERED: haloperidol 5mg tablet PO ONE (05:20)
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
[2022-01-09] MEDS: fluticasone nasal spray 16GM bottle NS SCH (08:00)
[2022-01-09] MEDS: tetrahydrozoline 0.05% 15ml ophthalmic drops EACHEYE SCH ×4 (08:00→22:07)
[2022-01-09] MEDS: clotrimazole topical cream 15gm tube TP SCH ×2 (08:00→22:03)
[2022-01-09] MEDS: mupirocin 2% ointment 22GM TP SCH ×2 (08:00→22:03)
[2022-01-09] MEDS: docusate sod 100mg capsule PO SCH ×2 (08:05→22:04)
[2022-01-09] MEDS: pantoprazole 40mg Tablet.DR PO SCH (08:05)
[2022-01-09] MEDS: atorvastatin 20mg tablet PO SCH (08:05)
[2022-01-09] MEDS: cloNIDine 0.1 mg tablet PO SCH ×2 (08:05→22:04)
[2022-01-09] MEDS: lactobacillus rhamnosus 10,000 MMU CELLS/CAPSULE PO SCH ×2 (08:05→22:04)
[2022-01-09] MEDS: LORazepam 1 MG tablet PO SCH ×2 (08:05→17:45)
[2022-01-09] MEDS: ibuprofen tablet 400 MG TABLET PO SCH ×3 (08:06→17:45)
[2022-01-09] MEDS: OLANZapine 5mg rapidly disint. tablet PO SCH ×3 (08:06→22:05)
[2022-01-09] MEDS: sertraline 25mg tablet PO SCH (08:06)
[2022-01-09] MEDS: divalproex sod 250mg ER (24-hour) tablet PO SCH ×2 (08:06→22:06)
[2022-01-09] MEDS: levoTHYROXINE 25mcg tablet PO SCH (08:06)
[2022-01-09] MEDS: ciprofloxacin 250mg tablet PO SCH ×2 (11:26→22:02)
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
[2022-01-09 19:00] VITALS: BP 137/76
[2022-01-09] MEDS: traZODone 50mg tablet PO SCH (22:04)
[2022-01-10] MEDS: acetaminophen 325mg tablet PO PRN (04:31)
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
[2022-01-10] MEDS: fluticasone nasal spray 16GM bottle NS SCH (08:17)
[2022-01-10] MEDS: tetrahydrozoline 0.05% 15ml ophthalmic drops EACHEYE SCH ×4 (08:17→21:59)
[2022-01-10] MEDS: LORazepam 1 MG tablet PO SCH ×2 (08:17→17:17)
[2022-01-10] MEDS: cloNIDine 0.1 mg tablet PO SCH ×2 (08:18→21:54)
[2022-01-10] MEDS: lactobacillus rhamnosus 10,000 MMU CELLS/CAPSULE PO SCH ×2 (08:19→21:54)
[2022-01-10] MEDS: pantoprazole 40mg Tablet.DR PO SCH (08:19)
[2022-01-10] MEDS: levoTHYROXINE 25mcg tablet PO SCH (08:19)
[2022-01-10] MEDS: atorvastatin 20mg tablet PO SCH (08:19)
[2022-01-10] MEDS: docusate sod 100mg capsule PO SCH ×2 (08:19→21:53)
[2022-01-10] MEDS: OLANZapine 5mg rapidly disint. tablet PO SCH ×3 (08:20→21:55)
[2022-01-10] MEDS: divalproex sod 250mg ER (24-hour) tablet PO SCH ×2 (08:20→21:52)
[2022-01-10] MEDS: ibuprofen tablet 400 MG TABLET PO SCH ×3 (08:20→17:17)
[2022-01-10] MEDS: sertraline 25mg tablet PO SCH (08:20)
[2022-01-10] MEDS: mupirocin 2% ointment 22GM TP SCH ×2 (08:20→20:00)
[2022-01-10] MEDS: clotrimazole topical cream 15gm tube TP SCH ×2 (08:20→21:58)
[2022-01-10 08:36] VITALS: BP 142/77
[2022-01-10] MEDS: ciprofloxacin 250mg tablet PO SCH ×2 (10:08→21:52)
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
[2022-01-10 19:30] VITALS: BP 146/69
[2022-01-10] MEDS: traZODone 50mg tablet PO SCH (21:52)
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
--- NOTE | 2022-01-11 07:14 | NUR ---
Reassessment: Pt currently on Regular diet w/ mostly 100% intake of meals meeting needs at this time. LBM 01/08 receiving routine colace. No nutrition intervention implemented at this time, will continue to monitor. Recs: 1. Continue Regular diet as tolerated 2. Bowel care per rx 3. Weekly wts Addendum: 01/11/22 at [address] Amended: Links added.
[2022-01-11] MEDS: fluticasone nasal spray 16GM bottle NS SCH (07:43)
[2022-01-11] MEDS: tetrahydrozoline 0.05% 15ml ophthalmic drops EACHEYE SCH ×4 (07:43→20:13)
[2022-01-11] MEDS: docusate sod 100mg capsule PO SCH ×2 (07:44→20:12)
[2022-01-11] MEDS: LORazepam 1 MG tablet PO SCH ×2 (07:44→17:09)
[2022-01-11] MEDS: cloNIDine 0.1 mg tablet PO SCH ×2 (07:44→20:12)
[2022-01-11] MEDS: lactobacillus rhamnosus 10,000 MMU CELLS/CAPSULE PO SCH ×2 (07:45→20:12)
[2022-01-11] MEDS: atorvastatin 20mg tablet PO SCH (07:45)
[2022-01-11] MEDS: pantoprazole 40mg Tablet.DR PO SCH (07:45)
[2022-01-11] MEDS: levoTHYROXINE 25mcg tablet PO SCH (07:45)
[2022-01-11] MEDS: sertraline 25mg tablet PO SCH (07:45)
[2022-01-11] MEDS: divalproex sod 250mg ER (24-hour) tablet PO SCH ×2 (07:46→20:12)
[2022-01-11] MEDS: ibuprofen tablet 400 MG TABLET PO SCH ×3 (07:46→17:09)
[2022-01-11] MEDS: mupirocin 2% ointment 22GM TP SCH ×2 (07:46→20:13)
[2022-01-11] MEDS: OLANZapine 5mg rapidly disint. tablet PO SCH ×3 (07:46→20:13)
[2022-01-11] MEDS: clotrimazole topical cream 15gm tube TP SCH ×2 (07:46→20:13)
[2022-01-11 08:00] VITALS: BP 134/53
[2022-01-11] MEDS: ciprofloxacin 250mg tablet PO SCH ×2 (10:08→20:13)
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
[2022-01-11 19:33] VITALS: BP 146/80
[2022-01-11] MEDS: traZODone 50mg tablet PO SCH (20:12)
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
[2022-01-12] MEDS: acetaminophen 325mg tablet PO PRN (04:15)
[2022-01-12] MEDS: divalproex sod 250mg ER (24-hour) tablet PO SCH ×2 (07:32→20:49)
[2022-01-12] MEDS: ibuprofen tablet 400 MG TABLET PO SCH ×3 (07:32→17:42)
[2022-01-12] MEDS: docusate sod 100mg capsule PO SCH ×2 (07:32→20:49)
[2022-01-12] MEDS: pantoprazole 40mg Tablet.DR PO SCH (07:32)
[2022-01-12] MEDS: OLANZapine 5mg rapidly disint. tablet PO SCH ×3 (07:32→20:50)
[2022-01-12] MEDS: LORazepam 1 MG tablet PO SCH ×2 (07:33→17:42)
[2022-01-12] MEDS: atorvastatin 20mg tablet PO SCH (07:33)
[2022-01-12] MEDS: levoTHYROXINE 25mcg tablet PO SCH (07:33)
[2022-01-12] MEDS: cloNIDine 0.1 mg tablet PO SCH ×2 (07:33→20:49)
[2022-01-12] MEDS: lactobacillus rhamnosus 10,000 MMU CELLS/CAPSULE PO SCH ×2 (07:33→20:49)
[2022-01-12] MEDS: sertraline 25mg tablet PO SCH (07:33)
[2022-01-12 08:00] VITALS: BP 145/71
[2022-01-12] MEDS: tetrahydrozoline 0.05% 15ml ophthalmic drops EACHEYE SCH ×4 (08:00→20:55)
--- NOTE | 2022-01-12 09:54 | NUR ---
Pt. attended group today. The topic today was identifying the triggers, signs and symptoms of an upcoming episode/event so that Pts. can learn to apply coping skills before they get to a bad place with their symptoms. Pt. was sleepy in the group today. She often looked like she was dozing. She struggled with being able to identify what her triggers and warning signs were but she was able to report the things that help her feels better such as coloring, going to groups, and helping staff. Her thought content was WNL. Her thought process tends to be circumstantial. She appears to have a short attention span. Her demeanor was clam, complaint and pleasant. Her mood was upbeat, she shared that she is exited about her new placement. Ely Hanna LCSW
[2022-01-12] MEDS: ciprofloxacin 250mg tablet PO SCH ×2 (11:00→20:49)
[2022-01-12] MEDS: fluticasone nasal spray 16GM bottle NS SCH (11:01)
[2022-01-12] MEDS: clotrimazole topical cream 15gm tube TP SCH ×2 (11:02→20:55)
[2022-01-12] MEDS: mupirocin 2% ointment 22GM TP SCH ×2 (11:02→20:55)
--- NOTE | 2022-01-12 11:18 | NUR ---
CM-Pre-dcp/placement Presenting Issues: Pt participated in [facility]'s STAR assessment yesterday, Darryn Arntet LCSW, attended the assessment. Interventions: Clinician checked in w/pt to gather her thoughts on the assessment, per session pt reported, "I did very well, you would have been proud of me." Clinician consulted w/RAKESH-Ely Arnett re the outcome of [facility]'s StAR assessment, per consultation, [facility]'s plan is to place pt in a "clinical" respite home and provide some life coaching services to prepare her for placement in a more structured/supported environment. Plan: Clinician will continue to engage [facility] in dcp/placement activities. Alva Tavera LCSW Addendum: 01/12/22 at 1138 by Alva Tavera SS Amended: Links added.
--- NOTE | 2022-01-12 11:43 | NUR ---
CM-Linkages Presenting Issues: Pt's 5270 will on 01/25 @ 1357PM, pt's waiting for placement via [facility]. Interventions: Clinician had t/c w/pt's [facility] office service coordinator- Neida Diana @ [phone] & inquired about pt's dcp/placement plans. Per t/c Neida will be discussing this w/her roofing supervisor this afternoon and will get back to clinician re dcp/placement plans for pt. Plan: SS will continue to engage [facility] in dcp activities to facilitate placement/support for pt upon d/c. Alva Tavera, SALES STOCK ASSOCIATE Addendum: 01/12/22 at 1206 by Alva Tavera Amended: Links added.
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
[2022-01-12 20:00] VITALS: BP 109/66
[2022-01-12] MEDS: traZODone 50mg tablet PO SCH (20:49)
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
[2022-01-13] MEDS: docusate sod 100mg capsule PO SCH ×2 (07:51→19:15)
[2022-01-13] MEDS: cloNIDine 0.1 mg tablet PO SCH ×2 (07:51→19:15)
[2022-01-13] MEDS: LORazepam 1 MG tablet PO SCH ×2 (07:51→16:33)
[2022-01-13] MEDS: lactobacillus rhamnosus 10,000 MMU CELLS/CAPSULE PO SCH ×2 (07:51→19:14)
[2022-01-13] MEDS: sertraline 25mg tablet PO SCH (07:52)
[2022-01-13] MEDS: pantoprazole 40mg Tablet.DR PO SCH (07:52)
[2022-01-13] MEDS: levoTHYROXINE 25mcg tablet PO SCH (07:52)
[2022-01-13] MEDS: OLANZapine 5mg rapidly disint. tablet PO SCH ×3 (07:52→19:14)
[2022-01-13] MEDS: atorvastatin 20mg tablet PO SCH (07:52)
[2022-01-13] MEDS: divalproex sod 250mg ER (24-hour) tablet PO SCH ×2 (07:53→19:15)
[2022-01-13] MEDS: ibuprofen tablet 400 MG TABLET PO SCH ×3 (07:53→16:33)
[2022-01-13] MEDS: tetrahydrozoline 0.05% 15ml ophthalmic drops EACHEYE SCH ×4 (07:56→21:00)
[2022-01-13] MEDS: fluticasone nasal spray 16GM bottle NS SCH (07:57)
[2022-01-13] MEDS: mupirocin 2% ointment 22GM TP SCH ×2 (07:59→19:40)
[2022-01-13 08:00] VITALS: BP 137/70
[2022-01-13] MEDS: clotrimazole topical cream 15gm tube TP SCH ×2 (08:00→19:40)
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
--- NOTE | 2022-01-13 16:59 | NUR ---
At approx. 445pm, Pt had to be redirected away from the nurses station due to staff needing privacy. Pt. became agitated and started calling staff inappropriate names and went to her room. She proceeded to throw personal belongings from her room into the hallways. This nurse attempted to redirect the pt but she continued to throw items. Evening medications administered and Pt has been placed in seclusion room for a time to cool off.
[2022-01-13] MEDS: LORazepam 1 MG tablet PO PRN (17:51)
--- NOTE | 2022-01-13 17:56 | NUR ---
Pt continues to appear agitated, throwing her slippers at staff. PRN ativan administered and pt redirected to privacy room to cool off.
[2022-01-13] MEDS: acetaminophen 325mg tablet PO PRN (19:14)
[2022-01-13] MEDS: traZODone 50mg tablet PO SCH (19:15)
[2022-01-13 19:56] VITALS: BP 158/87
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
[2022-01-14] MEDS: levoTHYROXINE 25mcg tablet PO SCH (07:41)
[2022-01-14] MEDS: atorvastatin 20mg tablet PO SCH (07:41)
[2022-01-14] MEDS: LORazepam 1 MG tablet PO SCH ×2 (07:41→17:22)
[2022-01-14] MEDS: pantoprazole 40mg Tablet.DR PO SCH (07:41)
[2022-01-14] MEDS: ibuprofen tablet 400 MG TABLET PO SCH ×3 (07:41→17:22)
[2022-01-14] MEDS: sertraline 25mg tablet PO SCH (07:41)
[2022-01-14] MEDS: lactobacillus rhamnosus 10,000 MMU CELLS/CAPSULE PO SCH ×2 (07:41→20:31)
[2022-01-14] MEDS: cloNIDine 0.1 mg tablet PO SCH ×2 (07:41→20:31)
[2022-01-14] MEDS: clotrimazole topical cream 15gm tube TP SCH ×2 (07:42→20:47)
[2022-01-14] MEDS: docusate sod 100mg capsule PO SCH ×2 (07:42→20:32)
[2022-01-14] MEDS: OLANZapine 5mg rapidly disint. tablet PO SCH ×3 (07:42→20:31)
[2022-01-14] MEDS: divalproex sod 250mg ER (24-hour) tablet PO SCH ×2 (07:42→20:32)
[2022-01-14] MEDS: fluticasone nasal spray 16GM bottle NS SCH (07:43)
[2022-01-14] MEDS: mupirocin 2% ointment 22GM TP SCH ×2 (07:43→20:47)
[2022-01-14] MEDS: tetrahydrozoline 0.05% 15ml ophthalmic drops EACHEYE SCH ×4 (07:55→20:47)
[2022-01-14 08:00] VITALS: BP 140/64
[2022-01-14 08:18] LABS: ALANINE AMINOTRANSFERASE 16 U/L (12-78); ALBUMIN 3.5 G/DL (3.4-5.0); ALBUMIN/GLOBULIN RATIO 0.9 (1.1-1.5); ALKALINE PHOSPHATASE 62 IU/L (46-116); ANION GAP 7 (8-16); ASPARTATE AMINO TRANSFERASE 19 U/L (10-37); BILIRUBIN,TOTAL 0.2 MG/DL (0.1-1.0); BLOOD UREA NITROGEN 23 MG/DL (7-18); BUN/CREATININE RATIO 34.3 (6.6-38.0); CALCIUM 9.1 MG/DL (8.5-10.1); CHLORIDE 105 MMOL/L (99-107); CREATININE 0.67 MG/DL (0.40-0.90); GLUCOSE 112 MG/DL (70-104); POTASSIUM 4.2 MMOL/L (3.5-5.1); SODIUM 142 MMOL/L (135-145); TOTAL CARBON DIOXIDE 29.8 MMOL/L (24-32); TOTAL PROTEIN 7.2 G/DL (6.4-8.2); eGFR 90 ML/MIN
--- NOTE | 2022-01-14 11:14 | NUR ---
Received request from [facility] for records of LPS Holds for pt. [facility] is still revieiwng pt's packet for possible placement consideration; [phone], [id number] were faxed to: Fil[facility] Access Acoustical Tile Drill Press Operator [facility] Office eFax ROSE BalesW Addendum: 01/14/22 at 1117 by Alva Tavera SS Amended: Links added.
[2022-01-14 19:35] VITALS: BP 133/79
[2022-01-14] MEDS: traZODone 50mg tablet PO SCH ×2 (20:31→21:33)
[2022-01-14] MEDS: acetaminophen 325mg tablet PO PRN (21:34)
[2022-01-15] MEDS: LORazepam 1 MG tablet PO PRN (04:03)
[2022-01-15] MEDS: acetaminophen 325mg tablet PO PRN ×2 (04:03→14:46)
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
[2022-01-15] MEDS: levoTHYROXINE 25mcg tablet PO SCH (07:21)
[2022-01-15] MEDS: pantoprazole 40mg Tablet.DR PO SCH (07:22)
[2022-01-15] MEDS: sertraline 25mg tablet PO SCH (07:22)
[2022-01-15] MEDS: docusate sod 100mg capsule PO SCH ×2 (07:22→20:19)
[2022-01-15] MEDS: lactobacillus rhamnosus 10,000 MMU CELLS/CAPSULE PO SCH ×2 (07:22→20:19)
[2022-01-15] MEDS: LORazepam 1 MG tablet PO SCH ×2 (07:22→17:48)
[2022-01-15] MEDS: ibuprofen tablet 400 MG TABLET PO SCH ×3 (07:22→17:48)
[2022-01-15] MEDS: divalproex sod 250mg ER (24-hour) tablet PO SCH ×2 (07:22→20:18)
[2022-01-15] MEDS: atorvastatin 20mg tablet PO SCH (07:22)
[2022-01-15] MEDS: cloNIDine 0.1 mg tablet PO SCH ×2 (07:22→20:20)
[2022-01-15] MEDS: OLANZapine 5mg rapidly disint. tablet PO SCH ×3 (07:23→20:19)
[2022-01-15] MEDS: fluticasone nasal spray 16GM bottle NS SCH (07:23)
[2022-01-15] MEDS: clotrimazole topical cream 15gm tube TP SCH ×2 (07:24→20:28)
[2022-01-15] MEDS: mupirocin 2% ointment 22GM TP SCH ×2 (07:24→20:28)
[2022-01-15] MEDS: tetrahydrozoline 0.05% 15ml ophthalmic drops EACHEYE SCH ×4 (07:25→20:20)
[2022-01-15 08:51] VITALS: BP 130/88
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
[2022-01-15 19:00] VITALS: BP 132/80
[2022-01-15] MEDS: traZODone 50mg tablet PO SCH (20:20)
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
[2022-01-16 08:00] VITALS: BP 133/56
[2022-01-16] MEDS: tetrahydrozoline 0.05% 15ml ophthalmic drops EACHEYE SCH ×4 (08:14→21:49)
[2022-01-16] MEDS: fluticasone nasal spray 16GM bottle NS SCH (08:14)
[2022-01-16] MEDS: LORazepam 1 MG tablet PO SCH ×2 (08:15→18:05)
[2022-01-16] MEDS: cloNIDine 0.1 mg tablet PO SCH ×2 (08:15→21:47)
[2022-01-16] MEDS: lactobacillus rhamnosus 10,000 MMU CELLS/CAPSULE PO SCH ×2 (08:16→21:45)
[2022-01-16] MEDS: pantoprazole 40mg Tablet.DR PO SCH (08:16)
[2022-01-16] MEDS: atorvastatin 20mg tablet PO SCH (08:16)
[2022-01-16] MEDS: levoTHYROXINE 25mcg tablet PO SCH (08:16)
[2022-01-16] MEDS: sertraline 25mg tablet PO SCH (08:16)
[2022-01-16] MEDS: docusate sod 100mg capsule PO SCH ×2 (08:16→21:47)
[2022-01-16] MEDS: mupirocin 2% ointment 22GM TP SCH ×2 (08:17→20:00)
[2022-01-16] MEDS: ibuprofen tablet 400 MG TABLET PO SCH ×3 (08:17→18:05)
[2022-01-16] MEDS: OLANZapine 5mg rapidly disint. tablet PO SCH ×3 (08:17→21:45)
[2022-01-16] MEDS: clotrimazole topical cream 15gm tube TP SCH ×2 (08:17→20:00)
[2022-01-16] MEDS: divalproex sod 250mg ER (24-hour) tablet PO SCH ×2 (08:17→21:49)
[2022-01-16] MEDS: acetaminophen 325mg tablet PO PRN (10:30)
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
[2022-01-16 20:02] VITALS: BP 131/75
[2022-01-16] MEDS: traZODone 50mg tablet PO SCH (21:46)
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
[2022-01-17 08:00] VITALS: BP 116/78
[2022-01-17] MEDS: ibuprofen tablet 400 MG TABLET PO SCH ×3 (08:29→17:29)
[2022-01-17] MEDS: clotrimazole topical cream 15gm tube TP SCH ×2 (08:29→20:40)
[2022-01-17] MEDS: cloNIDine 0.1 mg tablet PO SCH ×2 (08:29→20:39)
[2022-01-17] MEDS: fluticasone nasal spray 16GM bottle NS SCH (08:29)
[2022-01-17] MEDS: mupirocin 2% ointment 22GM TP SCH ×2 (08:29→20:40)
[2022-01-17] MEDS: atorvastatin 20mg tablet PO SCH (08:29)
[2022-01-17] MEDS: divalproex sod 250mg ER (24-hour) tablet PO SCH ×2 (08:29→20:39)
[2022-01-17] MEDS: pantoprazole 40mg Tablet.DR PO SCH (08:29)
[2022-01-17] MEDS: levoTHYROXINE 25mcg tablet PO SCH (08:29)
[2022-01-17] MEDS: LORazepam 1 MG tablet PO SCH ×2 (08:30→17:29)
[2022-01-17] MEDS: tetrahydrozoline 0.05% 15ml ophthalmic drops EACHEYE SCH ×4 (08:30→20:40)
[2022-01-17] MEDS: lactobacillus rhamnosus 10,000 MMU CELLS/CAPSULE PO SCH ×2 (08:30→20:40)
[2022-01-17] MEDS: docusate sod 100mg capsule PO SCH ×2 (08:30→20:38)
[2022-01-17] MEDS: sertraline 25mg tablet PO SCH (08:30)
[2022-01-17] MEDS: OLANZapine 5mg rapidly disint. tablet PO SCH ×3 (08:30→20:39)
--- NOTE | 2022-01-17 09:42 | NUR ---
Reassessment: Pt PO mostly 75-100% intake of meals w/ occasional fluctuations overall meeting needs at this time. Noted 12.9kg wt gain since admit 12/09 likely influenced by medications. LBM 01/16 receiving routine colace. No nutrition intervention implemented at this time, will continue to monitor. Recs: 1. Continue Regular diet as tolerated 2. Bowel care per rx 3. Weekly wts Addendum: 01/17/22 at [address] Amended: Links added.
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
[2022-01-17 20:00] VITALS: BP 101/54
[2022-01-17] MEDS: traZODone 50mg tablet PO SCH (20:39)
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
[2022-01-18 08:00] VITALS: BP 124/60
[2022-01-18] MEDS: tetrahydrozoline 0.05% 15ml ophthalmic drops EACHEYE SCH ×4 (08:39→20:53)
[2022-01-18] MEDS: LORazepam 1 MG tablet PO SCH ×2 (08:39→16:57)
[2022-01-18] MEDS: fluticasone nasal spray 16GM bottle NS SCH (08:39)
[2022-01-18] MEDS: lactobacillus rhamnosus 10,000 MMU CELLS/CAPSULE PO SCH ×2 (08:40→20:00)
[2022-01-18] MEDS: pantoprazole 40mg Tablet.DR PO SCH (08:40)
[2022-01-18] MEDS: docusate sod 100mg capsule PO SCH ×2 (08:40→20:00)
[2022-01-18] MEDS: atorvastatin 20mg tablet PO SCH (08:40)
[2022-01-18] MEDS: cloNIDine 0.1 mg tablet PO SCH ×2 (08:40→19:20)
[2022-01-18] MEDS: levoTHYROXINE 25mcg tablet PO SCH (08:40)
[2022-01-18] MEDS: clotrimazole topical cream 15gm tube TP SCH ×2 (08:41→20:00)
[2022-01-18] MEDS: mupirocin 2% ointment 22GM TP SCH ×2 (08:41→20:00)
[2022-01-18] MEDS: OLANZapine 5mg rapidly disint. tablet PO SCH ×3 (08:41→19:20)
[2022-01-18] MEDS: sertraline 25mg tablet PO SCH (08:41)
[2022-01-18] MEDS: ibuprofen tablet 400 MG TABLET PO SCH ×3 (08:42→16:56)
[2022-01-18] MEDS: divalproex sod 250mg ER (24-hour) tablet PO SCH ×2 (08:42→19:21)
--- NOTE | 2022-01-18 14:01 | NUR ---
CASE MANAGEMENT Called Neida Diana, escalator service mechanic at [facility] (ph# [phone]) to check on status of placement. Neida reported she believes [facility] is going to take Paula, however, she cannot get transportation arranged this week. Reminded her that Paula's 5270 expires 01/25/22 and that we legally cannot keep her any longer past the . She reported [facility] is going to assess Paula, possibly tomorrow, for potential temporary placement at [facility] until she can be transported to [facility]. Provided Neida with sports book writer's phone number and requested updates. ILA Zamora
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
[2022-01-18 17:27] VITALS: BP 156/84
[2022-01-18] MEDS ORDERED: LORazepam 2 mg/ml vial ONE (19:08)
[2022-01-18] MEDS ORDERED: diphenhydrAMINE 50 mg/ml inj ONE (19:08)
[2022-01-18] MEDS ORDERED: haloperidol lactate 5mg/ml inj ONE (19:09)
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
[2022-01-18 20:00] VITALS: BP 145/86
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
[2022-01-18] MEDS: traZODone 50mg tablet PO SCH ×2 (20:53→21:08)
[2022-01-18] MEDS ORDERED: OLANZapine 5mg rapidly disint. tablet PO SCH (21:00)
[2022-01-18] MEDS: acetaminophen 325mg tablet PO PRN (21:08)
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
[2022-01-19] MEDS: ibuprofen tablet 400 MG TABLET PO SCH ×3 (08:09→17:05)
[2022-01-19] MEDS: sertraline 25mg tablet PO SCH (08:09)
[2022-01-19] MEDS: pantoprazole 40mg Tablet.DR PO SCH (08:09)
[2022-01-19] MEDS: LORazepam 1 MG tablet PO SCH ×2 (08:09→17:05)
[2022-01-19] MEDS: levoTHYROXINE 25mcg tablet PO SCH (08:09)
[2022-01-19] MEDS: LORazepam 1 MG tablet PO PRN ×3 (08:09→20:14)
[2022-01-19] MEDS: cloNIDine 0.1 mg tablet PO SCH ×2 (08:10→12:58)
[2022-01-19] MEDS: atorvastatin 20mg tablet PO SCH (08:10)
[2022-01-19] MEDS: lactobacillus rhamnosus 10,000 MMU CELLS/CAPSULE PO SCH ×2 (08:10→20:13)
[2022-01-19] MEDS: docusate sod 100mg capsule PO SCH ×2 (08:10→20:13)
[2022-01-19] MEDS: OLANZapine 5mg rapidly disint. tablet PO SCH ×2 (08:10→12:59)
[2022-01-19] MEDS: divalproex 250mg tablet, delayed-release PO SCH ×2 (08:10→12:58)
[2022-01-19] MEDS: fluticasone nasal spray 16GM bottle NS SCH (08:11)
[2022-01-19] MEDS: clotrimazole topical cream 15gm tube TP SCH ×2 (08:11→20:00)
[2022-01-19] MEDS: tetrahydrozoline 0.05% 15ml ophthalmic drops EACHEYE SCH ×4 (08:11→20:22)
[2022-01-19] MEDS: mupirocin 2% ointment 22GM TP SCH ×2 (08:16→20:00)
--- NOTE | 2022-01-19 08:49 | NUR ---
Seclusion: Unable to release pt from seclusion. PT throwing food and drink from breakfast on the floor, sacnhez and windows. Pt unable to comprehend criteria for release.
--- NOTE | 2022-01-19 09:47 | NUR ---
Seclusion: Pt banging on the door "Let me out". After telling her she will not be allowed out with that behavior, pt squats and voids on the floor. Pt continues to bang on the door.
--- NOTE | 2022-01-19 10:37 | NUR ---
PLACEMENT UPDATE Neida Paula's [facility] correctional case manager (ph# [phone]), called to request records 12/30/21- current. She reported she is going to come to [facility] and meet with someone from [facility] for an evaluation. Her goal is to move Paula into independent living until she can get transported to [facility] on 02/02/22. Ruling Technician will print notes and leave them for Neida to quill picking machine operator when she sees Paula. ILA Zamora
[2022-01-19] MEDS ORDERED: OLANZapine 5mg rapidly disint. tablet PO SCH (12:30)
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
--- NOTE | 2022-01-19 17:00 | NUR ---
Seclusion: Pt threw some belongings and crayons outside of her room all over the ground. When staff come in to remove other belongings she can throw she charges towards staff swinging and attempting to kick and punch. Pt placed in seclusion for safety. Pt urinates on the ground.
[2022-01-19 20:00] VITALS: BP 146/83
[2022-01-19] MEDS ORDERED: risperiDONE 0.5mg tablet PO ONE (20:05)
[2022-01-19] MEDS: divalproex sod 250mg ER (24-hour) tablet PO SCH (20:14)
[2022-01-19] MEDS: traZODone 50mg tablet PO SCH (20:14)
[2022-01-19] MEDS: acetaminophen 325mg tablet PO PRN (20:57)
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
[2022-01-20] MEDS: acetaminophen 325mg tablet PO PRN (01:02)
[2022-01-20] MEDS: cloNIDine 0.1 mg tablet PO SCH ×2 (07:36→12:45)
[2022-01-20] MEDS: divalproex 250mg tablet, delayed-release PO SCH ×2 (07:36→12:45)
[2022-01-20] MEDS: docusate sod 100mg capsule PO SCH ×2 (07:37→19:41)
[2022-01-20] MEDS: lactobacillus rhamnosus 10,000 MMU CELLS/CAPSULE PO SCH ×2 (07:37→19:42)
[2022-01-20] MEDS: tetrahydrozoline 0.05% 15ml ophthalmic drops EACHEYE SCH ×4 (07:37→20:43)
[2022-01-20] MEDS: LORazepam 1 MG tablet PO SCH ×2 (07:37→17:00)
[2022-01-20] MEDS: fluticasone nasal spray 16GM bottle NS SCH (07:37)
[2022-01-20] MEDS: atorvastatin 20mg tablet PO SCH (07:38)
[2022-01-20] MEDS: ibuprofen tablet 400 MG TABLET PO SCH ×3 (07:38→18:07)
[2022-01-20] MEDS: levoTHYROXINE 25mcg tablet PO SCH (07:38)
[2022-01-20] MEDS: sertraline 25mg tablet PO SCH (07:38)
[2022-01-20] MEDS: OLANZapine 5mg rapidly disint. tablet PO SCH ×2 (07:38→12:46)
[2022-01-20] MEDS: pantoprazole 40mg Tablet.DR PO SCH (07:38)
[2022-01-20] MEDS: clotrimazole topical cream 15gm tube TP SCH ×2 (07:54→20:00)
[2022-01-20] MEDS: mupirocin 2% ointment 22GM TP SCH ×2 (07:54→20:00)
[2022-01-20 08:00] VITALS: BP 135/63
--- NOTE | 2022-01-20 14:13 | NUR ---
CASE MANAGEMENT Called Neida Diana, access service representative at [facility] (ph# [phone]) to inquire how the visit with [facility] went yesterday. Neida reported Paula was quite sedated and they could not do the evaluation. [facility] will not provide support for her to go home until she can get into [facility]. Neida is still working on trying to find transportation. She is aware that Paula has to discharge on 01/25/22 when her 5270 expires. ILA Zamora
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
[2022-01-20] MEDS: risperiDONE 2mg tablet PO SCH (19:41)
[2022-01-20] MEDS: LORazepam 1 MG tablet PO PRN (19:42)
[2022-01-20] MEDS: traZODone 50mg tablet PO SCH (19:42)
[2022-01-20] MEDS: divalproex sod 250mg ER (24-hour) tablet PO SCH (19:42)
[2022-01-20 20:00] VITALS: BP 155/78
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
--- NOTE | 2022-01-20 20:45 | NUR ---
Pt taking down pants trying to urinate on floor, hitting sanchez, yelling.
--- NOTE | 2022-01-20 22:15 | NUR ---
Pt released from seclusion at this time as she has been resting quietly, PCT Larry now on 1:1 with patient.
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
[2022-01-21] MEDS: acetaminophen 325mg tablet PO PRN ×2 (04:30→10:47)
[2022-01-21 07:30] VITALS: BP 170/72
[2022-01-21] MEDS: tetrahydrozoline 0.05% 15ml ophthalmic drops EACHEYE SCH ×4 (08:00→20:49)
[2022-01-21] MEDS: mupirocin 2% ointment 22GM TP SCH ×2 (08:00→20:49)
[2022-01-21] MEDS: clotrimazole topical cream 15gm tube TP SCH ×2 (08:00→20:49)
[2022-01-21] MEDS: atorvastatin 20mg tablet PO SCH (09:31)
[2022-01-21] MEDS: cloNIDine 0.1 mg tablet PO SCH ×2 (09:31→13:13)
[2022-01-21] MEDS: sertraline 25mg tablet PO SCH (09:31)
[2022-01-21] MEDS: OLANZapine 5mg rapidly disint. tablet PO SCH ×2 (09:31→13:14)
[2022-01-21] MEDS: pantoprazole 40mg Tablet.DR PO SCH (09:31)
[2022-01-21] MEDS: LORazepam 1 MG tablet PO SCH ×2 (09:31→16:49)
[2022-01-21] MEDS: levoTHYROXINE 25mcg tablet PO SCH (09:31)
[2022-01-21] MEDS: docusate sod 100mg capsule PO SCH ×2 (09:31→20:48)
[2022-01-21] MEDS: ibuprofen tablet 400 MG TABLET PO SCH ×3 (09:31→16:48)
[2022-01-21] MEDS: divalproex 250mg tablet, delayed-release PO SCH ×2 (09:32→13:13)
[2022-01-21] MEDS: fluticasone nasal spray 16GM bottle NS SCH (09:38)
[2022-01-21] MEDS: lactobacillus rhamnosus 10,000 MMU CELLS/CAPSULE PO SCH ×2 (09:38→20:48)
--- NOTE | 2022-01-21 11:44 | NUR ---
CASE MANAGEMENT Neida (ph# [phone]), human services case manager with [facility] called to report they have transportation available on 02/02/22. [facility] offered to transport on 01/25/22 for $200/hour and Neida does not think [facility] will approve it. She is aware that Paula has to discharge on Tuesday when her 5270 expires. ILA Zamora
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
[2022-01-21 19:00] VITALS: BP 163/90
[2022-01-21] MEDS: divalproex sod 250mg ER (24-hour) tablet PO SCH (20:48)
[2022-01-21] MEDS: traZODone 50mg tablet PO SCH (20:48)
[2022-01-21] MEDS: risperiDONE 2mg tablet PO SCH (20:49)
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
[2022-01-22] MEDS: ibuprofen tablet 400 MG TABLET PO SCH ×3 (07:25→16:23)
[2022-01-22] MEDS: LORazepam 1 MG tablet PO SCH ×2 (07:26→16:23)
[2022-01-22] MEDS: OLANZapine 5mg rapidly disint. tablet PO SCH ×2 (07:26→12:36)
[2022-01-22] MEDS: docusate sod 100mg capsule PO SCH ×2 (07:26→20:42)
[2022-01-22] MEDS: pantoprazole 40mg Tablet.DR PO SCH (07:26)
[2022-01-22] MEDS: atorvastatin 20mg tablet PO SCH (07:27)
[2022-01-22] MEDS: lactobacillus rhamnosus 10,000 MMU CELLS/CAPSULE PO SCH ×2 (07:27→20:43)
[2022-01-22] MEDS: levoTHYROXINE 25mcg tablet PO SCH (07:27)
[2022-01-22] MEDS: divalproex 250mg tablet, delayed-release PO SCH ×2 (07:27→12:36)
[2022-01-22] MEDS: sertraline 25mg tablet PO SCH (07:27)
[2022-01-22] MEDS: fluticasone nasal spray 16GM bottle NS SCH (07:32)
[2022-01-22] MEDS: cloNIDine 0.1 mg tablet PO SCH ×2 (07:32→12:36)
[2022-01-22] MEDS: tetrahydrozoline 0.05% 15ml ophthalmic drops EACHEYE SCH ×4 (07:32→20:55)
[2022-01-22 08:00] VITALS: BP 140/72
[2022-01-22] MEDS: mupirocin 2% ointment 22GM TP SCH ×2 (08:00→20:55)
[2022-01-22] MEDS: clotrimazole topical cream 15gm tube TP SCH ×2 (08:00→20:55)
[2022-01-22] MEDS: acetaminophen 325mg tablet PO PRN (09:15)
--- NOTE | 2022-01-22 15:05 | NUR ---
DISCHARGE Tuesday01/25/22 AT 1:30 PM Paula has been accepted at [facility] and will get picked up at 1:30 PM on Tuesday to get transported to the facility. She needs a supply of medications on hand. Will request meds get finalized and sent to [facility] for delivery. ILA Zamora
[2022-01-22] MEDS ORDERED: ATI1T PO (15:48)
[2022-01-22] MEDS ORDERED: DIVA500T9 PO (15:48)
[2022-01-22] MEDS ORDERED: SERT-432 PO (15:48)
[2022-01-22] MEDS ORDERED: CLON0.1T2 PO (15:48)
[2022-01-22] MEDS ORDERED: RISP2TAB52 SL (15:48)
[2022-01-22] MEDS ORDERED: DOCU100C40 PO (15:48)
[2022-01-22] MEDS ORDERED: LEVO50TA8 PO (15:48)
[2022-01-22] MEDS ORDERED: ATOR20TA66 PO (15:48)
[2022-01-22] MEDS ORDERED: OLAN5TAB75 PO (15:48)
[2022-01-22] MEDS ORDERED: FLUT16SP NS (15:48)
[2022-01-22] MEDS ORDERED: IBUP-1984 PO (15:48)
[2022-01-22] MEDS ORDERED: TRAZ-256 PO (15:48)
[2022-01-22] MEDS ORDERED: PANT40TA54 PO (15:48)
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
[2022-01-22 20:00] VITALS: BP 123/69
[2022-01-22] MEDS: traZODone 50mg tablet PO SCH ×2 (20:43→21:57)
[2022-01-22] MEDS: divalproex sod 250mg ER (24-hour) tablet PO SCH (20:43)
[2022-01-22] MEDS: risperiDONE 2mg tablet PO SCH (20:44)
[2022-01-23] MEDS: acetaminophen 325mg tablet PO PRN (02:31)
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
[2022-01-23] MEDS: cloNIDine 0.1 mg tablet PO SCH ×2 (07:26→13:20)
[2022-01-23] MEDS: ibuprofen tablet 400 MG TABLET PO SCH ×3 (07:27→18:01)
[2022-01-23] MEDS: atorvastatin 20mg tablet PO SCH (07:27)
[2022-01-23] MEDS: lactobacillus rhamnosus 10,000 MMU CELLS/CAPSULE PO SCH ×2 (07:27→20:59)
[2022-01-23] MEDS: divalproex 250mg tablet, delayed-release PO SCH ×2 (07:27→12:30)
[2022-01-23] MEDS: LORazepam 0.5 MG tablet PO SCH ×2 (07:27→18:01)
[2022-01-23] MEDS: sertraline 25mg tablet PO SCH (07:27)
[2022-01-23] MEDS: levoTHYROXINE 25mcg tablet PO SCH (07:27)
[2022-01-23] MEDS: pantoprazole 40mg Tablet.DR PO SCH (07:27)
[2022-01-23] MEDS: OLANZapine 5mg rapidly disint. tablet PO SCH ×2 (07:27→13:20)
[2022-01-23] MEDS: fluticasone nasal spray 16GM bottle NS SCH (07:28)
[2022-01-23] MEDS: docusate sod 100mg capsule PO SCH ×2 (07:28→21:00)
[2022-01-23] MEDS: tetrahydrozoline 0.05% 15ml ophthalmic drops EACHEYE SCH ×4 (07:28→21:09)
[2022-01-23] MEDS: mupirocin 2% ointment 22GM TP SCH ×2 (07:29→21:10)
[2022-01-23] MEDS: clotrimazole topical cream 15gm tube TP SCH ×2 (07:29→21:11)
[2022-01-23 08:00] VITALS: BP 172/79
[2022-01-23 13:15] VITALS: BP 125/72
--- NOTE | 2022-01-23 13:33 | NUR ---
Held pt's scheduled dose of Depakote 500mg per COURTNEY Trujillo. Pt's Valproate level was slightly elevated and pt. is scheduled to be re-drawn tonight at 1999.
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
[2022-01-23 20:00] VITALS: BP 118/60
[2022-01-23] MEDS: risperiDONE 2mg tablet PO SCH (21:02)
[2022-01-23] MEDS: traZODone 50mg tablet PO SCH (21:02)
[2022-01-23] MEDS: divalproex sod 250mg ER (24-hour) tablet PO SCH (21:03)
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
[2022-01-24] MEDS: acetaminophen 325mg tablet PO PRN ×2 (04:32→23:01)
[2022-01-24] MEDS: LORazepam 1 MG tablet PO PRN (04:56)
[2022-01-24] MEDS: pantoprazole 40mg Tablet.DR PO SCH (07:26)
[2022-01-24] MEDS: LORazepam 0.5 MG tablet PO SCH ×2 (07:27→17:40)
[2022-01-24] MEDS: OLANZapine 5mg rapidly disint. tablet PO SCH ×2 (07:27→12:45)
[2022-01-24] MEDS: ibuprofen tablet 400 MG TABLET PO SCH ×3 (07:27→17:40)
[2022-01-24] MEDS: cloNIDine 0.1 mg tablet PO SCH ×2 (07:27→12:45)
[2022-01-24] MEDS: levoTHYROXINE 25mcg tablet PO SCH (07:27)
[2022-01-24] MEDS: docusate sod 100mg capsule PO SCH ×2 (07:27→20:37)
[2022-01-24] MEDS: atorvastatin 20mg tablet PO SCH (07:27)
[2022-01-24] MEDS: lactobacillus rhamnosus 10,000 MMU CELLS/CAPSULE PO SCH ×2 (07:27→20:36)
[2022-01-24] MEDS: divalproex 250mg tablet, delayed-release PO SCH ×2 (07:27→12:45)
[2022-01-24] MEDS: tetrahydrozoline 0.05% 15ml ophthalmic drops EACHEYE SCH ×4 (07:28→20:37)
[2022-01-24] MEDS: mupirocin 2% ointment 22GM TP SCH ×2 (07:28→20:38)
[2022-01-24] MEDS: clotrimazole topical cream 15gm tube TP SCH ×2 (07:28→20:38)
[2022-01-24] MEDS: fluticasone nasal spray 16GM bottle NS SCH (07:28)
[2022-01-24] MEDS: sertraline 25mg tablet PO SCH (07:46)
[2022-01-24 07:47] VITALS: BP 135/77
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
[2022-01-24 19:51] VITALS: BP 118/78
[2022-01-24] MEDS: divalproex sod 250mg ER (24-hour) tablet PO SCH (20:36)
[2022-01-24] MEDS: risperiDONE 2mg tablet PO SCH (20:36)
[2022-01-24] MEDS: traZODone 50mg tablet PO SCH (20:36)
[2022-01-25] MEDS: LORazepam 1 MG tablet PO PRN (01:42)
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
[2022-01-25] MEDS: ibuprofen tablet 400 MG TABLET PO SCH ×2 (07:34→13:08)
[2022-01-25] MEDS: pantoprazole 40mg Tablet.DR PO SCH (07:35)
[2022-01-25] MEDS: LORazepam 0.5 MG tablet PO SCH (07:35)
[2022-01-25] MEDS: cloNIDine 0.1 mg tablet PO SCH ×2 (07:35→13:08)
[2022-01-25] MEDS: OLANZapine 5mg rapidly disint. tablet PO SCH ×2 (07:35→13:09)
[2022-01-25] MEDS: docusate sod 100mg capsule PO SCH (07:36)
[2022-01-25] MEDS: levoTHYROXINE 25mcg tablet PO SCH (07:36)
[2022-01-25] MEDS: sertraline 25mg tablet PO SCH (07:36)
[2022-01-25] MEDS: mupirocin 2% ointment 22GM TP SCH (07:36)
[2022-01-25] MEDS: atorvastatin 20mg tablet PO SCH (07:36)
[2022-01-25] MEDS: divalproex 250mg tablet, delayed-release PO SCH ×2 (07:36→13:09)
[2022-01-25] MEDS: lactobacillus rhamnosus 10,000 MMU CELLS/CAPSULE PO SCH (07:37)
[2022-01-25] MEDS: fluticasone nasal spray 16GM bottle NS SCH (07:37)
[2022-01-25] MEDS: tetrahydrozoline 0.05% 15ml ophthalmic drops EACHEYE SCH ×2 (07:38→13:10)
[2022-01-25] MEDS: clotrimazole topical cream 15gm tube TP SCH (07:38)
--- NOTE | 2022-01-25 07:38 | NUR ---
Reassessment: Pt PO mostly 75-100% intake of meals w/ occasional fluctuations overall meeting needs at this time. LBM 01/24 receiving routine colace. No nutrition intervention implemented at this time, will continue to monitor. Recs: 1. Continue Regular diet as tolerated 2. Bowel care per rx 3. Weekly wts Addendum: 01/25/22 at [address] Amended: Links added.
[2022-01-25 08:00] VITALS: BP 124/82
--- NOTE | 2022-01-25 14:05 | NUR ---
cad manager Note: Patient very excited all day that she is going to her new home. Patient smiled and laughed all day. Patient denies SI/HI. Patient denies A/V hallucinations. Patient is going to [facility]. Patient has all her belongings. No wounds to report. RN preformed a MRSA swab. [facility] ambulatory steady gait with [employer] [facility] Patient has all her belongings. No distress observed.
== END 2022-01-25 14:00 | disposition home or self-care (01) | DRG 885 ==
LOC: ADULT MH 14:09
PROVIDERS: ADMIT Psychiatry & Neurology Psychiatry; ATTEND Psychiatry & Neurology Psychiatry
DX: F25.0 Schizoaffective disorder, bipolar type (principal); F79 Unspecified intellectual disabilities; R45.851 Suicidal ideations; N39.0 Urinary tract infection, site not specified; J30.9 Allergic rhinitis, unspecified; K29.70 Gastritis, unspecified, without bleeding; E66.3 Overweight; E89.0 Postprocedural hypothyroidism; Z20.822 Contact with and (suspected) exposure to COVID-19; L01.00 Impetigo, unspecified; E78.00 Pure hypercholesterolemia, unspecified; K21.9 Gastro-esophageal reflux disease without esophagitis; Z91.018 Allergy to other foods; Z56.0 Unemployment, unspecified; Z79.899 Other long term (current) drug therapy; Z68.36 Body mass index [BMI] 36.0-36.9, adult
CPT/HCPCS: 36415; 73502; 80053; 80061; 80164; 81001; 83036; 84443; 87081; 87088; 87811; J1200; J1630; J2060; Q0163